=== PATIENT | female | born 1985 ===

== ENCOUNTER 2020-06-13 08:00 | Outpatient (RCR) | payer OTHER, SELFPAY ==
[2020-05-17 12:05] VITALS: BMI 20.7
--- NOTE | 2020-05-17 12:25 | PC.ADMIT ---
Patient is a 35 year old female who was referred to the PHP program by her neurologist d/t anxiety with panic attacks. Pt has a seizure d/o and went to her neurologist to f/u however patient stated her neurologist told her she was not having Seizures she was having panic attacks. 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 Patient is alert and oriented x4. Reports HX of having a brain tumor and surgery for removal at age 8. 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 Stated her mother is home with her during group time and the clinicians can call her mother at [phone] if they witness her having a seizure. If mom not available call [phone]. Patient given education about panic attacks and was able to identify some symptoms that she experiences such as Heart racing, sweating, Trembling, SOB, and tingling sensations. Educated patient on Calm Breathing. Patient gave verbal permission to email her more information on Panic attacks, calm breathing, and her Safety Plan. Patient denied SI. Assessment completed via telephone d/t the pandemic.
--- NOTE | 2020-05-17 16:03 | HO.PS.ADMBH ---
HPI Chief Complaint: depression Sources of Information: patient interviewed and chart reviewed HPI Narrative: 35 yo female, referred by her neurology team reports symptoms of anxiety, panic which she misinterpreted for seizure activity. Reports an increase in depressive and anxious sx due to stress and invalidation in her workplace, stating she has been asked to perform tasks for which she has no training. She left work on medical leave on 05/06/20. 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 This has increased her anxiety along with physical symptoms of headache, body aches, generalized pain and feelings of hopelessness. Pt reports she has had a very positive first day in PHP groups and feels hopeful that symptoms will improve with improved understanding and learning coping skills. Discussion of anxiety, panic and symptoms. [facility] Medical History (Updated 05/21/20 @ 08:59 by Radha Rojo, CECI) Brain tumor Epilepsy Seizures Narrative: Epilepsy diagnosed per pt in 2006. Hx of TBI. s/p brain tumor pt reports some balance issues which are well controlled and some tremor at times PCP appt 05/22/20 when labs are due. 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 She is single, lives with her eleven year old son, her grandmother, and her uncle. Her mother lives in the home, in a downstairs apartment. Substance History: Denies Trauma History: Denies Diagnostics Vital Signs (24Hr): Body Mass Index 20.7 Meds/Allergies Meds Home Medications Medication Instructions Recorded Confirmed Type divalproex [Depakote ER] 250 mg PO DAILY 05/17/20 05/17/20 History divalproex [Depakote ER] 500 mg PO BEDTIME 05/17/20 05/17/20 History Allergies Allergies Allergy/AdvReac Type Severity Reaction Status Date / Time lamotrigine [Lamictal] Allergy Unknown Swelling Verified 05/20/20 14:59 of eyes/lips Mental Status Exam Mental Status Exam Patient Appearance: Appropriate Patient Orientation: Person, Place, Time and Situation Level of Consciousness: Awake, Appropriate and Alert Patient Behavior: Appropriate, Talkative, Cooperative and Anxious Mood Description: Appropriate, Anxious and Apprehensive Affect Description: Appropriate, Anxious and Apprehensive Patient Cognition Impaired: No Ability to Follow Directions: Excellent Speech Pattern: Clear and Appropriate Memory Description: Intact Hallucinations: None Delusions: Not Present Thought Process: Intact and Goal Oriented Thought Content: positive for Intact, positive for Circumstantial and positive for Logical Depressive Symptoms: Increased Anxiety, Muscle Pain, Hopelessness, Unhappiness, Increased Fatigue and Loss of Energy Judgement: Good Assessment & Plan Patient educated on: diagnosis, medication risk/benefits, therapeutic strategies and medical condition Informed Consent: understands and further education needed Reason for continued partial hosp. stay Substantial Risk for: inability to function and rapid decompensation Certification I certify that partial hospital treatment is medically necessary due to the symptoms and problems resulting from the patient's mental illness and the failure to treat the patient at the partial hospital level of care would likely result in the patient requiring inpatient psychiatric care which could not be prevented at a less intensive level of care.
--- NOTE | 2020-05-23 08:16 | PC.NURSE ---
Pt called and I spoke to her. She was out yesterday because she had an MD appt. She shared that she went to this appt and that the MD lost her [facility] paperwork, and no longer takes her insurance. She said she has to leave somewhat early today (12 noon) because she needs to return to this MD with new [facility] paperwork, and needs to change her insurance so that her MD will see her. She said she is getting help with this from her mother and sister. She will do a half day and leave early. She also has a neurology appt at 3 on Wednesday05/27/2020.
--- NOTE | 2020-05-23 16:05 | HO.PHPPROGNO ---
Subjective Subjective Date of Service: 05/23/20 Reason For Visit: depression Interim History: Shaylee reports she believes she is doing good. She reports feeling improved. Finding group helpful. Toay she discussed concerns regarding [place] paperwork which we reviewed. She will email required documents and we will complete them. Discussed medical appointments for next week. She will meet with neurology on Sunday 05/27. She continues to decline psychopharmacology intervention for assistance with symptom management. Medication Compliance: Yes Side effects from medications: No Attending Groups: Yes Review of Systems Psychiatric: Reports no additional psychiatric complaints Mental Status Exam Mental Status Exam Patient Orientation: Person, Place, Time and Situation Level of Consciousness: Awake and Alert Patient Behavior: Appropriate and Anxious Mood Description: Anxious Affect Description: Anxious Patient Cognition Impaired: No Ability to Follow Directions: Excellent Speech Pattern: Clear, Appropriate and Spontaneous Speech Memory Description: Intact Hallucinations: None Delusions: Not Present Thought Process: Intact and Goal Oriented Thought Content: positive for Intact Depressive Symptoms: Increased Anxiety Judgement: Good Diagnostics Vital Signs (24Hr): Body Mass Index 20.7 Assessment & Plan Patient educated on: medication risk/benefits and therapeutic strategies Informed Consent: understands and further education needed Reason for contiued partial hosp. stay Substantial Risk for: inability to function and rapid decompensation Certification I certify that partial hospital treatment is medically necessary due to the symptoms and problems resulting from the patient's mental illness and the failure to treat the patient at the partial hospital level of care would likely result in the patient requiring inpatient psychiatric care which could not be prevented at a less intensive level of care. Greater than 50% of the session was spent on counseling and/or coordination of care Discharge Plan Discharge Attending provider: Angel Proctor Additional Instructions: Continue Depakote 750 mg daily Pt declines psychopharmacology additions at this time for assistance with symptoms. Medications: No Action divalproex [Depakote ER] 250 mg Tablet Extended Release 24 Hr 500 mg PO BEDTIME RF: 0 divalproex [Depakote ER] 250 mg Tablet Extended Release 24 Hr 250 mg PO DAILY RF: 0
--- NOTE | 2020-05-28 09:54 | PC.NURSE ---
At pt's request, I called and referred pt to [facility]. I spoke to Tiara. I requested the [place] location as this is what pt asked for. She took information and said she will call me with an appt for therapist and med provider.
--- NOTE | 2020-05-28 16:18 | P.PNPSP_ITS ---
Subjective Subjective Date of Service: 05/28/20 Reason For Visit: depression Interim History: Shaylee reports an increase in anxiety due to worry about current problems with work related stressors. She had stopped Lorazepam but today reports she met with her neurology team and was told her EEG shows instances of partial seizures, possibly from anxiety. As a result, they have increased Depakote to 500 mg bid and she is using her lorazepam. Discussed antidepressant use to assist as well. She continues to decline. Medication Compliance: Intermittent (states she was not using Lorazepam as directed by her neurology team) Side effects from medications: Yes (sedation from Lorazepam) Attending Groups: Yes Review of Systems Reports seizure-like activity (EEG validated) Psychiatric: Reports anxiety, Reports depression, Reports difficulty concentrating and Reports other (seizure activity) Mental Status Exam Mental Status Exam Patient Orientation: Person, Place, Time and Situation Level of Consciousness: Awake, Appropriate and Alert Patient Behavior: Appropriate and Anxious Mood Description: Appropriate and Anxious Affect Description: Anxious and Apprehensive Patient Cognition Impaired: No Ability to Follow Directions: Excellent Speech Pattern: Clear and Appropriate Memory Description: Intact Hallucinations: None Delusions: Not Present Thought Process: Intact and Distracted (at times-worries) Thought Content: positive for Intact Depressive Symptoms: Increased Anxiety, Feelings of Worthlessness, Unhappiness and Low Self Esteem Judgement: Good Diagnostics Vital Signs (24Hr): Body Mass Index 20.7 Imaging Radiology Impressions: EEG shows seizure activity per pt report-she met with neurology today. Assessment & Plan Patient educated on: medication risk/benefits, therapeutic strategies and medical condition Informed Consent: further education needed Reason for contiued partial hosp. stay Substantial Risk for: inability to function and rapid decompensation Certification I certify that partial hospital treatment is medically necessary due to the symptoms and problems resulting from the patient's mental illness and the failure to treat the patient at the partial hospital level of care would likely result in the patient requiring inpatient psychiatric care which could not be prevented at a less intensive level of care. Greater than 50% of the session was spent on counseling and/or coordination of care Discharge Plan Discharge Attending provider: Angel Proctor Additional Instructions: Pt reports neuro team has increased Depakote to 500 mg bid Pt declines psychopharmacology additions at this time for assistance with s ymptoms. Medications: Discontinued divalproex [Depakote ER] 250 mg Tablet Extended Release 24 Hr 500 mg PO BEDTIME RF: 0 divalproex [Depakote ER] 250 mg Tablet Extended Release 24 Hr 250 mg PO DAILY RF: 0
--- NOTE | 2020-06-03 09:56 | PC.NURSE ---
Pt called out for PHP today. She said she has to take her son to the neurologist today in [place].
--- NOTE | 2020-06-04 08:38 | PC.NURSE ---
I called [facility] to inquire about referral placed for pt. I was told the sanitation supervisor would call be back.
--- NOTE | 2020-06-04 14:16 | PC.NURSE ---
I called [facility], as I have not heard back yet. They gave pt an appt with Gissel Lima, [address] [place] [address] in [place] (phone appt). I called and let pt know about this. I was told that pt will get a med appt after 3 to 6 visits with her therapist. They said there are no acceptations to this wait time for [facility] PHP/IOP clients and I spoke with Eva Blackmon, broadcast field supervisor, about this. Eva said she will call [facility].
--- NOTE | 2020-06-05 13:51 | HO.PHPPROGNO ---
Subjective Subjective Date of Service: 06/05/20 Reason For Visit: depression Interim History: Mother and grandmother answered the telephone for our scheduled appt. Both report worry about pt, she is not doing well. Shaylee concurs. Experiencing an increase of depressive sx, having ?SE from Depakote (an increase of 250 mg daily at her last neurological appt) feeling tired, anergic, dizzy,amotivation, headache. Reports she is able to better tolerate Lorazepam than when initially started. Sleep is off and on. On 06/04 she was awake for the day at 12am. Appetite is very poor, anxiety is high. Discussed postponing a return to work and possibly extending PHP. Pt will talk with her employer and junior technical writer will discuss with the team for input. Continues to decline antidepressant trial at this time. Medication Compliance: Yes Side effects from medications: Yes (as noted) Attending Groups: Yes Review of Systems Constitutional: Reports difficulty sleeping, Reports fatigue, Reports headache(s) (correlates to recent titration of Depakote by 250 mg daily.), Reports malaise and Reports weakness Reports headache(s) (correlates to recent titration of Depakote by 250 mg daily.) Reports headache(s) (correlates to recent titration of Depakote by 250 mg daily.), Reports seizure-like activity (EEG validated) and Reports weakness Psychiatric: Reports abnormal sleep pattern, Reports anxiety, Reports change in appetite, Reports depression and Reports hopelessness Endocrine: Reports fatigue Mental Status Exam Mental Status Exam Patient Orientation: Person, Place, Time and Situation Level of Consciousness: Awake, Appropriate and Alert Patient Behavior: Appropriate Mood Description: Depressed and Flat Affect Description: Flat Patient Cognition Impaired: No Ability to Follow Directions: Excellent Speech Pattern: Clear, Appropriate and Spontaneous Speech Memory Description: Intact Hallucinations: None Delusions: Not Present Thought Process: Intact Thought Content: positive for Intact Depressive Symptoms: Increased Anxiety, Insomnia, Diff. Making Decisions, Difficulty Sleeping, Changes in Appetite, Crying Spells, Loss of Int. in Activity, Hopelessness, Unexplained Headaches, Unhappiness, Increased Fatigue, Loss of Energy and Difficulty Concentrating Judgement: Good Diagnostics Vital Signs (24Hr): Body Mass Index 20.7 Assessment & Plan Patient educated on: diagnosis, medication risk/benefits, therapeutic strategies and medical condition Informed Consent: understands and further education needed Reason for contiued partial hosp. stay Substantial Risk for: inability to function and rapid decompensation Certification I certify that partial hospital treatment is medically necessary due to the symptoms and problems resulting from the patient's mental illness and the failure to treat the patient at the partial hospital level of care would likely result in the patient requiring inpatient psychiatric care which could not be prevented at a less intensive level of care. Greater than 50% of the session was spent on counseling and/or coordination of care Discharge Plan Discharge Attending provider: Angel Proctor Additional Instructions: Pt reports neuro team has increased Depakote to 500 mg bid Pt declines psychopharmacology additions at this time for assistance with symptoms. Appt for an intake for psychotherapy at [facility], Wednesday06/11/2020 at 11am with Gissel Lima, therapist. This is a phone appt, Gissel Lima will call the client. Discussed with pt extending FMLA and PHP. She will discuss with employer. Will get lab work today (CBCD, ChemPanel, Valproate level) to assess reported SE. Medications: Discontinued divalproex [Depakote ER] 250 mg Tablet Extended Release 24 Hr 500 mg PO BEDTIME RF: 0 divalproex [Depakote ER] 250 mg Tablet Extended Release 24 Hr 250 mg PO DAILY RF: 0 No Action Depakote 500 mg 500 mg PO BID RF: 0 Ativan 1 mg 1 mg PO BID RF: 0
--- NOTE | 2020-06-10 14:40 | HO.PS.ADMBH ---
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 She is single, lives with her eleven year old son, her grandmother, and her uncle. Her mother lives in the home, in a downstairs apartment. Trauma History: Denies Diagnostics Vital Signs (24Hr): Body Mass Index 20.7 Meds/Allergies Meds Home Medications Medication Instructions Recorded Confirmed Type Depakote 500 mg PO BID 05/29/20 05/29/20 History Ativan 1 mg PO BID 06/05/20 06/05/20 History Allergies Allergies Allergy/AdvReac Type Severity Reaction Status Date / Time lamotrigine [Lamictal] Allergy Unknown Swelling Verified 05/20/20 14:59 of eyes/lips Assessment & Plan Certification I certify that partial hospital treatment is medically necessary due to the symptoms and problems resulting from the patient's mental illness and the failure to treat the patient at the partial hospital level of care would likely result in the patient requiring inpatient psychiatric care which could not be prevented at a less intensive level of care.
--- NOTE | 2020-06-10 14:41 | HO.PHPPROGNO ---
Subjective Subjective Date of Service: 06/10/20 Reason For Visit: depression Interim History: Shaylee reports today she is feeling anxious, R arm she reports is tingling and hurts, which by history is a precursor to seizure activity. Plans labs today, psychotherapy on 06/11/20. Discussed feeling wierd depersonalized on 06/08-worried she was having aura. Discussed with pt considering an antidepressant in addition to Valproate and Lorazepam Medication Compliance: Yes Side effects from medications: No Attending Groups: Yes Review of Systems Constitutional: Reports fatigue and Reports weakness Reports seizure-like activity (EEG validated) and Reports weakness Psychiatric: Reports anxiety, Reports depression and Reports hopelessness Endocrine: Reports fatigue Mental Status Exam Mental Status Exam Patient Orientation: Person, Place, Time and Situation Level of Consciousness: Awake and Appropriate Patient Behavior: Appropriate and Cooperative Mood Description: Anxious Affect Description: Flat Patient Cognition Impaired: No Ability to Follow Directions: Excellent Speech Pattern: Clear, Appropriate and Spontaneous Speech Memory Description: Intact Hallucinations: None Delusions: Not Present Thought Process: Intact and Distracted (worried, anticipating seizure) Thought Content: positive for Preoccupation (worry about seizure activity) Depressive Symptoms: Increased Anxiety, Hopelessness, Unhappiness, Increased Fatigue and Low Self Esteem Judgement: Good Diagnostics Vital Signs (24Hr): Body Mass Index 20.7 Labs Labs: Plans lab work today Assessment & Plan Patient educated on: diagnosis, medication risk/benefits, therapeutic strategies and medical condition Informed Consent: understands and further education needed Reason for contiued partial hosp. stay Substantial Risk for: inability to function, rapid decompensation and med/psych decompensation Certification I certify that partial hospital treatment is medically necessary due to the symptoms and problems resulting from the patient's mental illness and the failure to treat the patient at the partial hospital level of care would likely result in the patient requiring inpatient psychiatric care which could not be prevented at a less intensive level of care. Greater than 50% of the session was spent on counseling and/or coordination of care Discharge Plan Discharge Attending provider: Angel Proctor Additional Instructions: Pt reports neuro team has increased Depakote to 500 mg bid Pt declines psychopharmacology additions at this time for assistance with symptoms. *Appt for an intake for psychotherapy at [facility], Wednesday06/11/2020 at 11am with Gissel Lima therapist. This is a phone appt, Gissel Lima will call the client. Discussed with pt extending FMLA and PHP. She will discuss with employer. Will get lab work today (CBCD, ChemPanel, Valproate level) to assess reported SE. *Appt for medication management evaluation with Antoine Mims APRN at [facility] on 07/11/2020 at 3:40pm. She has another appt for followup with Antoine Mims APRN ([facility]) on 08/12/2019 at 9:40am. These are tele-health appts, Antoine Mims will call the client and she has 10 minutes to return the call if she misses it. 06/10/20: Pt to consider adding an antidepressant. She has not done lab work yet, but will plan this for later today. Medications: Discontinued divalproex [Depakote ER] 250 mg Tablet Extended Release 24 Hr 500 mg PO BEDTIME RF: 0 divalproex [Depakote ER] 250 mg Tablet Extended Release 24 Hr 250 mg PO DAILY RF: 0 No Action Depakote 500 mg 500 mg PO BID RF: 0 Ativan 1 mg 1 mg PO BID RF: 0
== END 2020-06-13 23:55 | disposition home or self-care (01) ==
LOC: HO.PHPA 08:00
PROVIDERS: Visit Provider Psychiatry & Neurology Psychiatry
DX: F32.9 Major depressive disorder, single episode, unspecified (principal); F41.9 Anxiety disorder, unspecified
CPT/HCPCS: 90792; 90853; 99213; 99214

== ENCOUNTER 2020-06-17 10:24 | Outpatient (REF) | payer OTHER, SELFPAY ==
[2020-06-17 12:14] LABS: Valproate 72.5 mcg/mL (50.0-100.0)
== END 2020-06-17 10:25 | disposition home or self-care (01) ==
LOC: HO.HMGCLDS 10:24
PROVIDERS: PCP Internal Medicine; Visit Provider Psychiatry & Neurology Neurology
DX: G40.909 Epilepsy, unspecified, not intractable, without status epilepticus (principal)
CPT/HCPCS: 80164

== ENCOUNTER 2020-06-21 10:19 | Outpatient (REF) | payer OTHER, SELFPAY ==
[2020-06-21 11:14] LABS: MANUAL DIFF FLAG NO
[2020-06-21 11:24] LABS: Basophils Percent Auto 0.3 % (0-2); Eosinophils Percent Auto 0.5 % (0-4); Hematocrit 38.1 % (37-47); Hemoglobin 12.5 g/dl (12.0-16.0); Imm Gran Abs Auto 0.05 X10*3/uL (0.00-0.03); Imm Gran Pct Auto 0.9 % (0.0-0.4); Lymphocytes Absolute Auto 2.5 X10*3/uL (1.2-4.9); Lymphocytes Percent Auto 42.9 % (20-40); Mean Corpuscular HGB Conc 32.8 g/dl (31.0-35.0); Mean Corpuscular Hemoglobin 31.5 pg (27.0-33.0); Mean Platelet Volume 11.2 fL (9.4-12.3); Monocytes Absolute Auto 0.5 X10*3/uL (0.1-1.2); Monocytes Percent Auto 7.8 % (2-11); Neutrophils Absolute Auto 2.8 X10*3/uL (2.0-8.3); Neutrophils Percent Auto 47.6 % (45-73); Platelet Count 186 X10*3/uL (160-400); Red Blood Count 3.97 X10*6/uL (4.20-5.50); Red Cell Distribution Width 11.8 % (11.0-16.0); White Blood Count 5.9 X10*3/uL (4.8-10.8)
[2020-06-21 12:12] LABS: Anion Gap 13 (12-20); Blood Urea Nitrogen 10 mg/dL (9-16); Calcium 8.8 mg/dL (8.4-10.2); Carbon Dioxide 27 mmol/L (22-29); Chloride 104 mmol/L (96-108); Estimated Glomerular Filt Rate > 60; Glucose Random 80 mg/dL (60-115); Potassium 4.6 mmol/l (3.3-5.1); Sodium 139 mmol/L (135-145)
[2020-06-21 12:16] LABS: Vitamin B12 742 pg/mL (200-900)
[2020-06-21 12:34] LABS: Ferritin 52 ng/mL (10-122); TSH reflex Free T4 2.57 mIU/mL (0.32-4.0)
[2020-06-24 19:09] LABS: LDL Cholesterol Direct 140 mg/dL (<100)
[2020-06-26 16:22] LABS: Vitamin D 25-OH, D2 <4 ng/mL; Vitamin D 25-OH, D3 33 ng/mL; Vitamin D 25-OH, Total 33 ng/mL (30-100)
== END 2020-06-21 10:20 | disposition home or self-care (01) ==
LOC: HO.HMGCLDS 10:19
PROVIDERS: PCP Internal Medicine; Visit Provider Internal Medicine
DX: G40.909 Epilepsy, unspecified, not intractable, without status epilepticus (principal); R42 Dizziness and giddiness; R53.83 Other fatigue; R68.89 Other general symptoms and signs
CPT/HCPCS: 36415; 80048; 82306; 82607; 82728; 83721; 84443; 85025

== ENCOUNTER 2020-11-27 09:28 | Outpatient (REF) | payer OTHER, SELFPAY ==
[2020-11-27 11:26] LABS: MANUAL DIFF FLAG NO
[2020-11-27 11:30] LABS: Basophils Percent Auto 0.6 % (0-2); Eosinophils Absolute Auto 0.1 X10*3/uL (0.0-0.4); Hematocrit 38.1 % (37-47); Hemoglobin 12.5 g/dl (12.0-16.0); Imm Gran Abs Auto 0.05 X10*3/uL (0.00-0.03); Imm Gran Pct Auto 0.7 % (0.0-0.4); Lymphocytes Absolute Auto 2.6 X10*3/uL (1.2-4.9); Lymphocytes Percent Auto 36.7 % (20-40); Mean Corpuscular HGB Conc 32.8 g/dl (31.0-35.0); Mean Corpuscular Hemoglobin 31.4 pg (27.0-33.0); Mean Corpuscular Volume 95.7 fL (80-98); Mean Platelet Volume 11.6 fL (9.4-12.3); Monocytes Absolute Auto 0.7 X10*3/uL (0.1-1.2); Monocytes Percent Auto 9.5 % (2-11); Neutrophils Absolute Auto 3.6 X10*3/uL (2.0-8.3); Neutrophils Percent Auto 51.5 % (45-73); Platelet Count 202 X10*3/uL (160-400); Red Blood Count 3.98 X10*6/uL (4.20-5.50); Red Cell Distribution Width 12.1 % (11.0-16.0)
[2020-11-27 12:30] LABS: Alanine Aminotransferase 12 U/L (0-31); Albumin Level 4.1 g/dL (3.5-5.0); Alkaline Phosphatase 47 U/L (39-117); Anion Gap 14 (12-20); Aspartate Amino Transferase 17 U/L (5-31); Bilirubin Total 0.8 mg/dL (0.0-1.0); Blood Urea Nitrogen 8 mg/dL (9-16); Carbon Dioxide 24 mmol/L (22-29); Chloride 104 mmol/L (96-108); Estimated Glomerular Filt Rate > 60; Glucose Random 68 mg/dL (60-115); Potassium 4.3 mmol/L (3.3-5.1); Sodium 138 mmol/L (135-145)
== END 2020-11-27 09:29 | disposition home or self-care (01) ==
LOC: HO.HMGCLDS 09:28
PROVIDERS: PCP Internal Medicine; Visit Provider Internal Medicine
DX: L29.9 Pruritus, unspecified (principal); R21 Rash and other nonspecific skin eruption; T78.40XA Allergy, unspecified, initial encounter
CPT/HCPCS: 36415; 80053; 85025

== ENCOUNTER 2021-10-13 08:46 | Outpatient (REF) | payer OTHER, SELFPAY ==
[2021-10-13 10:07] LABS: Alanine Aminotransferase 9 U/L (0-31); Alkaline Phosphatase 34 U/L (39-117); Aspartate Amino Transferase 13 U/L (5-31); Bilirubin Direct 0.2 mg/dL (0.0-0.5); Bilirubin Total 0.6 mg/dL (0.0-1.0); Total Protein 6.8 g/dL (6.5-8.0)
[2021-10-13 11:11] LABS: Valproate 68.8 mcg/mL (50.0-100.0)
== END 2021-10-13 08:47 | disposition home or self-care (01) ==
LOC: HO.LAB 08:46
PROVIDERS: PCP Internal Medicine; Visit Provider Psychiatry & Neurology Neurology
DX: G43.909 Migraine, unspecified, not intractable, without status migrainosus (principal); Z79.899 Other long term (current) drug therapy
CPT/HCPCS: 36415; 80076; 80164

== ENCOUNTER 2021-10-15 12:38 | Outpatient (REF) | payer OTHER, SELFPAY ==
[2021-10-15 13:49] LABS: MANUAL DIFF FLAG NO
[2021-10-15 13:59] LABS: Basophils Absolute Auto 0.1 X10*3/uL (0.0-0.2); Basophils Percent Auto 0.6 % (0-2); Eosinophils Absolute Auto 0.1 X10*3/uL (0.0-0.4); Eosinophils Percent Auto 0.8 % (0-4); Hematocrit 38.4 % (37.0-47.0); Hemoglobin 12.1 g/dl (12.0-16.0); Imm Gran Abs Auto 0.04 X10*3/uL (0.00-0.03); Imm Gran Pct Auto 0.5 % (0.0-0.4); Lymphocytes Absolute Auto 2.9 X10*3/uL (1.2-4.9); Lymphocytes Percent Auto 34.8 % (20-40); Mean Corpuscular HGB Conc 31.5 g/dl (31.0-35.0); Mean Platelet Volume 11.9 fL (9.4-12.3); Monocytes Absolute Auto 0.6 X10*3/uL (0.1-1.2); Monocytes Percent Auto 6.9 % (2-11); Neutrophils Absolute Auto 4.8 x10*3/uL (2.0-8.3); Neutrophils Percent Auto 56.4 % (45-73); Platelet Count 182 X10*3/uL (160-400); Red Blood Count 4.04 X10*6/uL (4.20-5.50); Red Cell Distribution Width 12.2 % (11.0-16.0); White Blood Count 8.4 X10*3/uL (4.8-10.8)
[2021-10-15 14:07] LABS: Estimated Average Glucose 88 mg/dL; Hemoglobin A1c % 4.7 %
[2021-10-15 14:09] LABS: Alanine Aminotransferase 7 U/L (0-31); Albumin Level 4.1 g/dL (3.5-5.0); Alkaline Phosphatase 36 U/L (39-117); Anion Gap 12 (12-20); Aspartate Amino Transferase 12 U/L (5-31); Bilirubin Total 0.4 mg/dL (0.0-1.0); Blood Urea Nitrogen 9 mg/dL (9-16); Calcium 9.8 mg/dL (8.4-10.2); Carbon Dioxide 27 mmol/L (22-29); Chloride 106 mmol/L (96-108); Estimated Glomerular Filt Rate > 60; Glucose Random 88 mg/dL (60-115); Potassium 4.6 mmol/L (3.3-5.1); Sodium 140 mmol/L (135-145); Total Protein 7.1 g/dL (6.5-8.0)
[2021-10-15 14:31] LABS: TSH reflex Free T4 3.33 uIU/mL (0.32-4.0)
[2021-10-15 14:53] LABS: Vitamin B12 721 pg/mL (200-900)
[2021-10-20 16:26] LABS: Vitamin D 25-OH, D2 <4 ng/mL; Vitamin D 25-OH, D3 29 ng/mL; Vitamin D 25-OH, Total 29 ng/mL (30-100)
== END 2021-10-15 12:39 | disposition home or self-care (01) ==
LOC: HO.HMGCLDS 12:38
PROVIDERS: Visit Provider Internal Medicine
DX: F41.1 Generalized anxiety disorder (principal); G47.10 Hypersomnia, unspecified; R10.9 Unspecified abdominal pain; R53.83 Other fatigue; R63.4 Abnormal weight loss
CPT/HCPCS: 36415; 80053; 82306; 82607; 83036; 84443; 85025

== ENCOUNTER 2023-08-20 14:54 | Outpatient (AMB) | payer OTHER, SELFPAY ==
--- NOTE | 2023-08-20 15:03 | A.OFFPC_ITS ---
Vital Signs 08/20/23 15:07 Height 5 ft 3 in Weight 102 lb BMI 18.1 BP 110/72 Blood Pressure Location Rt brachial Position Sitting Pulse 71 Pulse Source Pulse Oximeter Pulse Oximetry (%) 97 Oxygen Delivery Method Room Air Intake Visit Reasons: Annual PE Allergies escitalopram [From Lexapro] Allergy (Severe, Verified 08/20/23 15:04) Hallucinations lamotrigine [Lamictal] Allergy (Unknown, Verified 08/20/23 15:04) Swelling of eyes/lips Medication List - Last Reconciled 08/20/23 by Valorie Leon MD divalproex (Depakote) 250 mg PO BID Tobacco use date assessed: 08/20/23 HPI Annual PE HPI Details Physical exam appointment Patient is a 38-year-old female with a history of epilepsy, anxiety, panic attack Due for Pap smear, OBGYN referral placed patient requested [facility] Also complaining of blurring of vision and would like to see an eye doctor Lab order placed to be done fasting Patient need paperwork filled for housing which I did She continued to have panic attacks in spite of taking Lexapro through neurology I have sent lorazepam 0.5 mg tablet patient may take that 1 as needed patient is aware it is a controlled medication at will need visit for refill Patient was notified This medication is Habit forming and may cause Psychological dependence, It can cause drowsiness, dizziness, cognitive impairment , slowing of reflexes along with some other side effect . Vitamin-D supplement sent [facility] Medical History Anxiety, generalized Epilepsy Brain tumor Seizures Surgical History History of section [place] teeth extracted Brain tumor Family History Father Diabetes mellitus Mother Medical history non-contributory Sister Asthma Sister No problems noted. Son No problems noted. Social History Household Members: Family and Children Household Members Other:: Pt lives with 11 yo son, grandmother, and uncle. Mother lives downstairs Housing: House Alcohol intake: never Patient Tobacco Use Status: Never used Tobacco e-Cigarette/Vaping Use: Never Used service: No Current occupational status: unemployed Cognitive needs: No Hearing needs: No Vision needs: No Questionnaire PHQ-9 Over the last 2 weeks, how often have you been bothered by any of the following problems? 1. Little interest or pleasure in doing things: several days 2. Feeling down, depressed, or hopeless: not at all 3. Trouble falling or staying asleep, or sleeping too much: nearly every day 4. Feeling tired or having little energy: several days 5. Poor appetite or overeating: several days 6. Feeling bad about yourself - or that you are a failure or have let yourself or your family down: not at all 7. Trouble concentrating on things, such as reading the newspaper or watching television: not at all 8. Moving or speaking so slowly that other people could have noticed. Or the opposite - being so fidgety or restless that you have been moving around a lot more than usual: nearly every day 9. Thoughts that you would be better off or of hurting yourself in some way: not at all Total score: 9 Depression Screening Interpretation: Positive Depression Screening Follow-up: Existing condition and In treatment Depression Screening Done: Yes 20967 - PHQ-9 Billing: Yes Source: Developed by Drs. Rubens Jhaveri, Liane Shannon, Estrada Macias and colleagues, with an educational anjel from [employer]. Thrive Questionnaire Date Thrive assessed: 08/20/23 I am a: Patient What is your living situation today?: I have a steady place to live Within the past 12 months, did the food you bought not last and you didn't have the money to get more?: Never true Within the past 12 months, did you worry whether your food would run out before you got money to buy more?: Never true Do you have trouble paying for medicines?: No Do you have trouble getting transportation to medical appointments?: No Do you have trouble paying your heating and electricity bill?: No Do you have trouble taking care of your child, family member or friend?: No Do you have trouble with day-to-day activities such as bathing, preparing meals, shopping, managing finances, etc.?: No Are you currently unemployed and looking for a job?: No Are you interested in more education?: No Please select the resources that you would like help with: None YOSHI-7 AMB Questionnaire YOSHI-7 Date YOSHI - 7 assessed: 08/20/23 Feeling nervous, anxious, or on edge: 0 = Not at all Not being able to stop or control worryin = Not at all Worrying too much about different things: 0 = Not at all Trouble relaxin = Not at all Being so restless that it is hard to sit still: 0 = Not at all Becoming easily annoyed or irritable: 0 = Not at all Feeling afraid as if something awful might happen: 0 = Not at all Total YOSHI-7 score (0-4 normal; 5-9 mild; 10-14 moderate; 15-21 severe): 0 Source: Developed by Drs. Rubens Jhaveri, Liane Shannon, Estrada Macias and colleagues, with an educational anjel from [employer]. YOSHI-7 Assessment Billing YOSHI-7 Assessment Tool: YOSHI-7 Assessment 84266 Review of Systems Const Denies chills, Denies fever(s) and Denies headache(s) ENT Denies headache(s), Denies nasal discharge, Denies nasal obstruction, Denies odynophagia and Denies sinus pain Card Denies chest pain at rest and Denies chest pain with activity Resp Denies cough and Denies hemoptysis GI Denies diarrhea, Denies odynophagia, Denies vomiting and Denies hematemesis Reports as per HPI Musc Denies abnormal gait Skin/Breast Reports as per HPI Neuro Denies Neuro-related abnormal movements, Denies Abnormal speech present, Denies abnormal gait, Denies headache(s) and Denies Sensory deficit (Neuro) Psych Denies mood swings and Denies paranoia Endo Reports as per HPI Aramis/Lymph Reports as per HPI Aller/Immun Reports as per HPI Physical exam (Primary Care) Vital Signs: Last Vital Signs Pulse 71 08/20/23 15:07 BP 110/72 08/20/23 15:07 Pulse Ox 97 08/20/23 15:07 Oxygen Delivery Method Room Air 08/20/23 15:07 BMI result Body Mass Index 18.1 Tobacco/Smoking Status: Tobacco use Status Tobacco use date assessed 08/20/23 08/20/23 15:07 Patient Tobacco Use Status Never used Tobacco 08/20/23 15:07 e-Cigarette/Vaping Use Never Used 08/20/23 15:07 PHQ-9: PHQ-9 Score PHQ-9: Total score 9 08/20/23 15:49 Depression Screening Interpretation: Positive Depression Screening Follow-up: Existing condition and In treatment Thrive Assessment: Date of Thrive Assessment Date Thrive assessed 08/20/23 08/20/23 15:49 Const General: cooperative, comfortable and no acute distress Orientation/consciousness: patient oriented x3 HENMT Head: Yes normocephalic and Yes atraumatic Eyes General: appearance normal, both eyes and all related structures Pupils: Equal, round and reactive pupils present EOM: EOMs intact bilaterally Neck Neck: Yes supple and No lymphadenopathy Thyroid: Thyroid normal Lymphatic: no lymphadenopathy noted Resp Effort & Inspection: normal respiratory effort and able to speak in complete sentences Auscultation: clear to auscultation bilaterally Cardio Heart sounds: S1 normal heart sound present and S2 normal heart sound present GI Palpation (GI): Soft to palpation and nontender Auscultation: normal bowel sounds General: Yes no CVA tenderness Back/Spine/Pelvis Back: no CVA tenderness Skin General skin exam: elasticity normal and turgor normal Neuro General: patient oriented x3 and gait normal Cranial nerves: Yes Equal, round and reactive pupils present Speech: No Abnormal speech present Sensory Exam: No Sensory deficit (Neuro) Extrem General: Yes normal exam except as noted and No edema Assessment and Plan Assessment & Plan (1) Encounter for general adult medical examination with abnormal findings: Code(s): Z00.01 - Encounter for general adult medical examination with abnormal findings (2) Seizure disorder: Code(s): G40.909 - Epilepsy, unspecified, not intractable, without status epilepticus (3) Major depression, recurrent: Code(s): F33.9 - Major depressive disorder, recurrent, unspecified Qualifiers: Active/Remission status: in partial remission Qualified Code(s): F33.41 - Major depressive disorder, recurrent, in partial remission (4) Blurring of vision: Code(s): H53.8 - Other visual disturbances (5) Panic disorder [episodic paroxysmal anxiety]: Code(s): F41.0 - Panic disorder [episodic paroxysmal anxiety] (6) Vitamin D deficiency: Code(s): E55.9 - Vitamin D deficiency, unspecified Plan Physical exam appointment Patient is a 38-year-old female with a history of epilepsy, anxiety, panic attack Due for Pap smear, OBGYN referral placed patient requested [facility] Also complaining of blurring of vision and would like to see an eye doctor Lab order placed to be done fasting Patient need paperwork filled for housing which I did She continued to have panic attacks in spite of taking Lexapro through neurology I have sent lorazepam 0.5 mg tablet patient may take that 1 as needed patient is aware it is a controlled medication at will need visit for refill Patient was notified This medication is Habit forming and may cause Psychological dependence, It can cause drowsiness, dizziness, cognitive impairment , slowing of reflexes along with some other side effect . Vitamin-D supplement sent Orders: Orders Complete Blood Count Auto Diff Today F33.9 - Major depressive disorder, recurrent, unspecified, G40.909 - Epilepsy, unspecified, not intractable, witho ut status epilepticus, Z00.01 - Encounter for general adult medical examination with abnormal findings Comprehensive [place]. Panel Fast Today F33.9 - Major depressive disorder, recurrent, unspecified, G40.909 - Epilepsy, unspecified, not intractable, without status epilepticus, Z00.01 - Encounter for general adult medical examination with abnormal findings Lipid Panel Today F33.9 - Major depressive disorder, recurrent, unspecified, G40.909 - Epilepsy, unspecified, not intractable, without status epilepticus, Z00.01 - Encounter for general adult medical examination with abnormal findings TSH reflex Free T4 Today F33.9 - Major depressive disorder, recurrent, unspecified, G40.909 - Epilepsy, unspecified, not intractable, without status epilepticus, Z00.01 - Encounter for general adult medical examination with abnormal findings Referrals [facility] Referral Z01.419 - Encounter for gynecological examination (general) (routine) without abnormal findings Ophthalmology Referral H53.8 - Other visual disturbances Medications: New cholecalciferol (vitamin D3) 25 mcg PO DAILY 90 caps 1RF 90 days lorazepam 0.5 mg PO DAILY PRN 30 tabs 0RF anxiety escitalopram oxalate (Lexapro) 10 mg PO DAILY Coding Level of Care Code Est Pt Prev Care 18-39y(82648) Diagnoses Encounter for general adult medical examination with abnormal findings Z00.01 Seizure disorder G40.909 Recurrent major depressive disorder, in partial remission F33.41 Active/Remission status: in partial remission Blurring of vision H53.8 Panic disorder [episodic paroxysmal anxiety] F41.0 Vitamin D deficiency E55.9 Additional Codes YOSHI-7 Assessment Billing - YOSHI-7 Assessment Tool: YOSHI-7 Assessment 95261 ([id number])
[2023-08-20 15:07] VITALS: BP 110/72; PULSE 71; O2SAT 97; BMI 18.1
== END 2023-08-20 16:00 | disposition home or self-care (01) ==
PROVIDERS: PCP Internal Medicine; Visit Provider Internal Medicine
DX: Z00.00 Encounter for general adult medical examination without abnormal findings (principal); G40.909 Epilepsy, unspecified, not intractable, without status epilepticus; F33.41 Major depressive disorder, recurrent, in partial remission; H53.8 Other visual disturbances; F41.0 Panic disorder [episodic paroxysmal anxiety]; E55.9 Vitamin D deficiency, unspecified
CPT/HCPCS: 96127; 99395

== ENCOUNTER 2023-08-21 09:23 | Outpatient (REF) | payer OTHER, SELFPAY ==
[2023-08-21 11:13] LABS: Basophils Absolute Auto 0.1 X10*3/uL (0.0-0.2); Basophils Percent Auto 0.9 % (0-2); Eosinophils Absolute Auto 0.1 X10*3/uL (0.0-0.4); Eosinophils Percent Auto 1.4 % (0-4); Hematocrit 37.8 % (37.0-47.0); Hemoglobin 12.2 g/dl (12.0-16.0); Imm Gran Abs Auto 0.03 X10*3/uL (0.00-0.03); Imm Gran Pct Auto 0.5 % (0.0-0.4); Lymphocytes Absolute Auto 2.4 X10*3/uL (1.2-4.9); Lymphocytes Percent Auto 43.3 % (20-40); MANUAL DIFF FLAG NO; Mean Corpuscular HGB Conc 32.3 g/dl (31.0-35.0); Mean Corpuscular Hemoglobin 31.1 pg (27.0-33.0); Mean Corpuscular Volume 96.4 fL (80.0-98.0); Mean Platelet Volume 11.5 fL (9.4-12.3); Monocytes Absolute Auto 0.5 X10*3/uL (0.1-1.2); Monocytes Percent Auto 8.6 % (2-11); Neutrophils Absolute Auto 2.5 x10*3/uL (2.0-8.3); Neutrophils Percent Auto 45.3 % (45-73); Platelet Count 190 X10*3/uL (160-400); Red Blood Count 3.92 X10*6/uL (4.20-5.50); Red Cell Distribution Width 11.9 % (11.0-16.0); White Blood Count 5.6 X10*3/uL (4.8-10.8)
[2023-08-21 11:37] LABS: Alanine Aminotransferase 11 U/L (0-31); Albumin Level 4.1 g/dL (3.5-5.0); Alkaline Phosphatase 52 U/L (39-117); Anion Gap 12 (12-20); Aspartate Amino Transferase 14 U/L (5-31); Bilirubin Total 0.6 mg/dL (0.0-1.0); Blood Urea Nitrogen 9 mg/dL (9-16); Calcium 9.2 mg/dL (8.4-10.2); Carbon Dioxide 25 mmol/L (22-29); Chloride 106 mmol/L (96-108); Cholesterol 182 mg/dL (<200); Estimated Glomerular Filt Rate > 60; Glucose Fasting 84 mg/dL (60-99); HDL Cholesterol 46 mg/dL (>40); LDL Cholesterol Calculated 124 mg/dL (<100); Potassium 4.1 mmol/L (3.3-5.1); Sodium 139 mmol/L (135-145); Total Protein 7.2 g/dL (6.5-8.0); Triglycerides 64 mg/dL (<150)
[2023-08-21 11:46] LABS: TSH reflex Free T4 2.61 uIU/mL (0.32-4.0)
== END 2023-08-21 09:24 | disposition home or self-care (01) ==
LOC: HO.HMGCLDS 09:23
PROVIDERS: PCP Internal Medicine; Visit Provider Internal Medicine
DX: Z00.01 Encounter for general adult medical examination with abnormal findings (principal); G40.909 Epilepsy, unspecified, not intractable, without status epilepticus; F33.9 Major depressive disorder, recurrent, unspecified
CPT/HCPCS: 36415; 80053; 80061; 84443; 85025

== ENCOUNTER 2023-10-27 14:47 | Outpatient (AMB) | payer OTHER, SELFPAY ==
[2023-10-27 14:53] VITALS: BP 104/70; PULSE 84; O2SAT 98; BMI 18.1
--- NOTE | 2023-10-27 14:53 | A.OFFPC_ITS ---
Vital Signs 10/27/23 14:53 Height 5 ft 3 in Weight 102 lb 2 oz BMI 18.1 BP 104/70 Blood Pressure Location Rt brachial Position Sitting Pulse 84 Pulse Source Pulse Oximeter Pulse Oximetry (%) 98 Oxygen Delivery Method Room Air Intake Visit Reasons: section 8 paperwork Allergies escitalopram [From Lexapro] Allergy (Severe, Verified 10/27/23 14:55) Hallucinations lamotrigine [Lamictal] Allergy (Unknown, Verified 10/27/23 14:55) Swelling of eyes/lips Medication List - Last Reconciled 10/27/23 by Valorie Leon MD cholecalciferol (vitamin D3) 25 mcg PO DAILY 90 days divalproex (Depakote) 250 mg PO BID escitalopram oxalate (Lexapro) 10 mg PO DAILY lorazepam 0.5 mg PO DAILY PRN Tobacco use date assessed: 10/27/23 Dental Screening Dental Screen Date: 10/27/23 Did you have a dental visit in the last 12 months?: Yes Did you have a dental problem in the last 6 months where you did not have access to dental care?: No Was dental information given to patient?: Patient has dentist HPI section 8 paperwork HPI Details Patient is a 38-year-old female with a history of epilepsy, anxiety, panic attack Patient has been living with who is taking care patient's as well Recently the apartment building bound out and they do not allow family member to leave in the same apartment Patient need paperwork filled so they can allow Shaylee to continue renting a room in her mother's apartment. Paperwork was spell at her last visit but housing authority needs more information. Paperwork filled again She has her regular follow-up next month for medication refill [facility] Medical History Anxiety, generalized Epilepsy Brain tumor Seizures Surgical History History of section [place] teeth extracted Brain tumor Family History Father Diabetes mellitus Mother Medical history non-contributory Sister Asthma Sister No problems noted. Son No problems noted. Social History Household Members: Family and Children Household Members Other:: Pt lives with 11 yo son, grandmother, and uncle. Mother lives downstairs Housing: House Alcohol intake: never Patient Tobacco Use Status: Never used Tobacco e-Cigarette/Vaping Use: Never Used service: No Current occupational status: unemployed Cognitive needs: No Hearing needs: No Vision needs: No Questionnaire Thrive Questionnaire Date Thrive assessed: 08/20/23 AUDIT C Alcohol Use Questionnaire (AUDIT-C) 1. How often do you have a drink containing alcohol?: Never 3. How often do you have six or more drinks on one occasion?: Never Total Score: 0 Score Reviewed/Action Taken: Yes YOSHI-7 AMB Questionnaire YOSHI-7 Date YOSHI - 7 assessed: 08/20/23 Source: Developed by Drs. Rubens Jhaveri, Liane Shannon, Estrada Macias and colleagues, with an educational anjel from [employer]. Review of Systems Const Denies chills and Denies fever(s) ENT Denies epistaxis and Denies nasal discharge Card Denies chest pain Resp Denies chest congestion, Denies cough and Denies hemoptysis GI Denies diarrhea and Denies nausea Skin/Breast Denies rash Neuro Reports no additional complaints Psych Reports no additional complaints Endo Reports no additional complaints Physical exam (Primary Care) Vital Signs: Last Vital Signs Pulse 84 10/27/23 14:53 BP 104/70 10/27/23 14:53 Pulse Ox 98 10/27/23 14:53 Oxygen Delivery Method Room Air 10/27/23 14:53 BMI result Body Mass Index 18.1 Tobacco/Smoking Status: Tobacco use Status Tobacco use date assessed 10/27/23 10/27/23 14:56 Patient Tobacco Use Status Never used Tobacco 10/27/23 14:56 e-Cigarette/Vaping Use Never Used 10/27/23 14:56 Thrive Assessment: Date of Thrive Assessment Date Thrive assessed 08/20/23 10/27/23 14:56 Const General: cooperative, comfortable and no acute distress Orientation/consciousness: patient oriented x3 HENMT Head: Yes normocephalic Eyes General: appearance normal, both eyes and all related structures Neck Neck: Yes supple Resp Effort & Inspection: normal respiratory effort, no cough and no stridor Cardio Rhythm: regular rhythm Heart sounds: S1 normal heart sound present and S2 normal heart sound present Skin General skin exam: turgor normal Neuro General: patient oriented x3, tone normal and moves all extremities Extrem Right lower extremity: no edema Left lower extremity: no edema Assessment and Plan Assessment & Plan (1) Seizure disorder: Code(s): G40.909 - Epilepsy, unspecified, not intractable, without status epilepticus (2) Major depression, recurrent: Code(s): F33.9 - Major depressive disorder, recurrent, unspecified Qualifiers: Active/Remission status: in partial remission Qualified Code(s): F33.41 - Major depressive disorder, recurrent, in partial remission (3) Panic disorder [episodic paroxysmal anxiety]: Code(s): F41.0 - Panic disorder [episodic paroxysmal anxiety] Plan Patient is a 38-year-old female with a history of epilepsy, anxiety, panic attack Patient has been living with who is taking care patient's as well Recently the apartment building bound out and they do not allow family member to leave in the same apartment Patient need paperwork filled so they can allow Shaylee to continue renting a room in her mother's apartment. Paperwork was spell at her last visit but housing authority needs more information. Paperwork filled again She has her regular follow-up next month for medication refill Coding Level of Care Code Est Pt Level 3 (98107) Diagnoses Seizure disorder G40.909 Recurrent major depressive disorder, in partial remission F33.41 Active/Remission status: in partial remission Panic disorder [episodic paroxysmal anxiety] F41.0
== END 2023-10-27 15:53 | disposition home or self-care (01) ==
PROVIDERS: PCP Internal Medicine; Visit Provider Internal Medicine
DX: G40.909 Epilepsy, unspecified, not intractable, without status epilepticus (principal); F33.41 Major depressive disorder, recurrent, in partial remission; F41.0 Panic disorder [episodic paroxysmal anxiety]
CPT/HCPCS: 99213

== ENCOUNTER 2024-05-26 08:58 | Outpatient (AMB) | payer OTHER, SELFPAY ==
[2024-05-26 09:04] VITALS: BP 104/68; PULSE 54; O2SAT 98; BMI 17.9
--- NOTE | 2024-05-26 09:04 | MHC.PC.OV ---
Vital Signs 05/26/24 09:04 Height 5 ft 3 in Weight 101 lb 2 oz BMI 17.9 BP 104/68 Blood Pressure Location Rt brachial Position Sitting Pulse 54 Pulse Source Pulse Oximeter Pulse Oximetry (%) 98 Oxygen Delivery Method Room Air Intake Visit Reasons: Body itchy, rash Allergies escitalopram [From Lexapro] Allergy (Severe, Verified 05/26/24 09:08) Hallucinations lamotrigine [Lamictal] Allergy (Unknown, Verified 05/26/24 09:08) Swelling of eyes/lips Medication List - Last Reconciled 05/26/24 by Valorie Leon MD cholecalciferol (vitamin D3) 25 mcg PO DAILY 90 days divalproex (Depakote) 250 mg PO BID escitalopram oxalate (Lexapro) 10 mg PO DAILY lorazepam 0.5 mg PO DAILY PRN Tobacco use date assessed: 05/26/24 Dental Screening Dental Screen Date: 05/26/24 Did you have a dental visit in the last 12 months?: Yes Did you have a dental problem in the last 6 months where you did not have access to dental care?: No Was dental information given to patient?: Patient has dentist HPI Body itchy, rash HPI Details Chief complaint rash for the past 1 week Took tcju-nyd-pyyfdkc vaginal cream 1 week ago Then started having itching Recently was started on metronidazole vaginal cream by [facility] Have rash behind left ear as well as right ear But feeling pruritic all over body Review system is negative for fever chills nausea vomiting abdominal pain or any joint swellings Patient would like to have labs done, last set of lab was in August Order placed Hydroxyzine 25 mg sent to be taken at night Follow-up next week [facility] Medical History Anxiety, generalized Epilepsy Brain tumor Seizures Surgical History History of section [place] teeth extracted Brain tumor Family History Father Diabetes mellitus Mother Medical history non-contributory Sister Asthma Sister No problems noted. Son No problems noted. Social History Household Members: Family and Children Household Members Other:: Pt lives with 11 yo son, grandmother, and uncle. Mother lives downstairs Housing: House Alcohol intake: never Patient Tobacco Use Status: Never used Tobacco e-Cigarette/Vaping Use: Never Used service: No Current occupational status: unemployed Cognitive needs: No Hearing needs: No Vision needs: No Questionnaire PHQ-9 Over the last 2 weeks, how often have you been bothered by any of the following problems? 1. Little interest or pleasure in doing things: not at all 2. Feeling down, depressed, or hopeless: not at all 3. Trouble falling or staying asleep, or sleeping too much: not at all 4. Feeling tired or having little energy: not at all 5. Poor appetite or overeating: not at all 6. Feeling bad about yourself - or that you are a failure or have let yourself or your family down: not at all 7. Trouble concentrating on things, such as reading the newspaper or watching television: not at all 8. Moving or speaking so slowly that other people could have noticed. Or the opposite - being so fidgety or restless that you have been moving around a lot more than usual: not at all 9. Thoughts that you would be better off or of hurting yourself in some way: not at all Total score: 0 Depression Screening Interpretation: Negative Depression Screening Done: Yes [id number] - PHQ-9 Billing: Yes Source: Developed by Drs. Rubens Jhaveri, Liane Shannon, Estrada Macias and colleagues, with an educational anjel from [employer]. Thrive Questionnaire Date Thrive assessed: 05/26/24 I am a: Patient What is your living situation today?: I have a steady place to live Within the past 12 months, did the food you bought not last and you didn't have the money to get more?: Never true Within the past 12 months, did you worry whether your food would run out before you got money to buy more?: Never true Do you have trouble paying for medicines?: No Do you have trouble getting transportation to medical appointments?: No Do you have trouble paying your heating and electricity bill?: No Do you have trouble taking care of your child, family member or friend?: No Do you have trouble with day-to-day activities such as bathing, preparing meals, shopping, managing finances, etc.?: No Are you currently unemployed and looking for a job?: No Are you interested in more education?: Yes Currently or been in a relationship where the following occur: No concerns reported THRIVE Score: 0 AUDIT C Alcohol Use Questionnaire (AUDIT-C) 1. How often do you have a drink containing alcohol?: Never 3. How often do you have six or more drinks on one occasion?: Never Total Score: 0 Score Reviewed/Action Taken: Yes YOSHI-7 AMB Questionnaire YOSHI-7 Date YOSHI - 7 assessed: 08/20/23 Source: Developed by Drs. Rubens Jhaveri, Liane Shannon, Estrada Macias and colleagues, with an educational anjel from [employer]. Review of Systems Const Denies chills and Denies fever(s) ENT Denies epistaxis and Denies nasal discharge Card Denies chest pain Resp Denies chest congestion, Denies cough and Denies hemoptysis GI Denies diarrhea and Denies nausea Neuro Reports no additional complaints Psych Reports no additional complaints Endo Reports no additional complaints Physical exam (Primary Care) Vital Signs: Last Vital Signs Pulse 54 05/26/24 09:04 BP 104/68 05/26/24 09:04 Pulse Ox 98 05/26/24 09:04 Oxygen Delivery Method Room Air 05/26/24 09:04 BMI result Body Mass Index 17.9 Tobacco/Smoking Status: Tobacco use Status Tobacco use date assessed 05/26/24 05/26/24 09:08 Patient Tobacco Use Status Never used Tobacco 05/26/24 09:08 e-Cigarette/Vaping Use Never Used 05/26/24 09:08 PHQ-9: PHQ-9 Score PHQ-9: Total score 0 05/26/24 09:20 Depression Screening Interpretation: Negative Thrive Assessment: Date of Thrive Assessment Date Thrive assessed 05/26/24 05/26/24 09:08 Currently or been in a relationship where the following occur: No concerns reported Const General: cooperative, comfortable and no acute distress Orientation/consciousness: patient oriented x3 HENMT Head: Yes normocephalic Eyes General: appearance normal, both eyes and all related structures Neck Neck: Yes supple Resp Effort & Inspection: normal respiratory effort, no cough and no stridor Cardio Rhythm: regular rhythm Heart sounds: S1 normal heart sound present and S2 normal heart sound present Skin Other: Maculopapular rash below ears left more than right General skin exam: turgor normal Neuro General: patient oriented x3, tone normal and moves all extremities Extrem Right lower extremity: no edema Left lower extremity: no edema Coding Level of Care Code Est Pt Level 3 (38703) Diagnoses Pruritic dermatitis L30.8 Assessment & Plan Assessment & Plan (1) Pruritic dermatitis: Code(s): L30.8 - Other specified dermatitis Category: Medical Plan Chief complaint rash for the past 1 week Took jqgx-gou-syxqevt vaginal cream 1 week ago Then started having itching Recently was started on metronidazole vaginal cream by [facility] Have rash behind left ear as well as right ear But feeling pruritic all over body Review system is negative for fever chills nausea vomiting abdominal pain or any joint swellings Patient would like to have labs done, last set of lab was in August Order placed Hydroxyzine 25 mg sent to be taken at night Follow-up next week Orders: Orders Comprehensive Met. Panel Today L30.8 - Other specified dermatitis Complete Blood Count Auto Diff Today L30.8 - Other specified dermatitis Medications: New hydroxyzine HCl 25 mg PO BEDTIME 10 tabs 0RF Discontinued lorazepam Discontinued Reason: Doctor's Order 0.5 mg PO DAILY PRN 30 tabs 0RF anxiety
== END 2024-05-26 09:22 | disposition home or self-care (01) ==
PROVIDERS: PCP Internal Medicine; Visit Provider Internal Medicine
DX: L30.8 Other specified dermatitis (principal)

== ENCOUNTER → 2024-05-26 08:58 | Outpatient (BNVA) | payer OTHER, SELFPAY | PROVIDERS: PCP Internal Medicine; Visit Provider Internal Medicine ==

== ENCOUNTER 2024-05-26 09:21 | Outpatient (REF) | payer OTHER, SELFPAY ==
[2024-05-26 10:54] LABS: MANUAL DIFF FLAG NO
[2024-05-26 10:59] LABS: Basophils Absolute Auto 0.1 X10*3/uL (0.0-0.2); Basophils Percent Auto 0.7 % (0-2); Eosinophils Percent Auto 0.3 % (0-4); Hematocrit 38.7 % (37.0-47.0); Hemoglobin 12.5 g/dl (12.0-16.0); Imm Gran Abs Auto 0.05 X10*3/uL (0.00-0.03); Imm Gran Pct Auto 0.7 % (0.0-0.4); Lymphocytes Absolute Auto 2.8 X10*3/uL (1.2-4.9); Lymphocytes Percent Auto 37.8 % (20-40); Mean Corpuscular HGB Conc 32.3 g/dl (31.0-35.0); Mean Platelet Volume 11.6 fL (9.4-12.3); Monocytes Absolute Auto 0.6 X10*3/uL (0.1-1.2); Monocytes Percent Auto 8.6 % (2-11); Neutrophils Absolute Auto 3.8 x10*3/uL (2.0-8.3); Neutrophils Percent Auto 51.9 % (45-73); Platelet Count 175 X10*3/uL (160-400); Red Blood Count 4.03 X10*6/uL (4.20-5.50); Red Cell Distribution Width 12.3 % (11.0-16.0); White Blood Count 7.3 X10*3/uL (4.8-10.8)
[2024-05-26 11:47] LABS: Alanine Aminotransferase 13 U/L (0-31); Albumin Level 4.2 g/dL (3.5-5.0); Alkaline Phosphatase 47 U/L (39-117); Anion Gap 11 (12-20); Aspartate Amino Transferase 15 U/L (5-31); Bilirubin Total 0.8 mg/dL (0.0-1.0); Blood Urea Nitrogen 7 mg/dL (9-16); Calcium 9.2 mg/dL (8.4-10.2); Carbon Dioxide 23 mmol/L (22-29); Chloride 108 mmol/L (96-108); Estimated Glomerular Filt Rate > 60; Glucose Random 82 mg/dL (60-115); Potassium 4.1 mmol/L (3.3-5.1); Sodium 138 mmol/L (135-145); Total Protein 7.1 g/dL (6.5-8.0)
== END 2024-05-26 09:22 | disposition home or self-care (01) ==
LOC: HO.HMGCLDS 09:21
PROVIDERS: PCP Internal Medicine; Visit Provider Internal Medicine
DX: L30.8 Other specified dermatitis (principal)
CPT/HCPCS: 36415; 80053; 85025; 96127; 99212

== ENCOUNTER → 2024-05-30 15:15 | Outpatient (BNVA) | payer OTHER, SELFPAY | PROVIDERS: PCP Internal Medicine; Visit Provider Internal Medicine | DX: L30.8 Other specified dermatitis (principal) | CPT/HCPCS: 99212 ==

== ENCOUNTER 2024-05-30 15:16 | Outpatient (AMB) | payer OTHER, SELFPAY ==
[2024-05-30 15:16] VITALS: BP 99/68; PULSE 78; O2SAT 99; BMI 17.8
--- NOTE | 2024-05-30 15:16 | MHC.PC.OV ---
Vital Signs 05/30/24 15:16 Height 5 ft 3 in Weight 100 lb 8 oz BMI 17.8 BP 99/68 Blood Pressure Location Rt brachial Position Sitting Pulse 78 Pulse Source Pulse Oximeter Pulse Oximetry (%) 99 Oxygen Delivery Method Room Air Intake Visit Reasons: follow up from 05/26 Allergies escitalopram [From Lexapro] Allergy (Severe, Verified 05/30/24 15:23) Hallucinations lamotrigine [Lamictal] Allergy (Unknown, Verified 05/30/24 15:23) Swelling of eyes/lips Medication List - Last Reconciled 05/30/24 by Valorie Leon MD cholecalciferol (vitamin D3) 25 mcg PO DAILY 90 days divalproex (Depakote) 250 mg PO BID hydroxyzine HCl 25 mg PO BEDTIME Tobacco use date assessed: 05/30/24 Dental Screening Dental Screen Date: 05/30/24 Did you have a dental visit in the last 12 months?: Yes Did you have a dental problem in the last 6 months where you did not have access to dental care?: No Was dental information given to patient?: Patient has dentist HPI follow up from 05/26 HPI Details Patient is a 39-year-old female came in today to have a follow-up on rash Which is mostly behind her ears left more than right She was prescribed hydroxyzine 25 mg which is helping with pruritus Right ear rash has almost resolved Left ear rash is still there I have sent clobetasol cream that she is to start using at night Labs reviewed with the patient We will set up a telemedicine visit in 2 weeks for follow-up If not resolved patient will need Dermatology appointment. Meanwhile avoid wearing earrings COUNT INCLUDES [facility] Medical History Anxiety, generalized Epilepsy Brain tumor Seizures Surgical History History of section [place] teeth extracted Brain tumor Family History Father Diabetes mellitus Mother Medical history non-contributory Sister Asthma Sister No problems noted. Son No problems noted. Social History Household Members: Family and Children Household Members Other:: Pt lives with 11 yo son, grandmother, and uncle. Mother lives downstairs Housing: House Alcohol intake: never Patient Tobacco Use Status: Never used Tobacco e-Cigarette/Vaping Use: Never Used service: No Current occupational status: unemployed Cognitive needs: No Hearing needs: No Vision needs: No Questionnaire PHQ-9 Over the last 2 weeks, how often have you been bothered by any of the following problems? Depression Screening Interpretation: Negative Depression Screening Done: Yes Source: Developed by Drs. Rubens Jhaveri, Estrada Perera and colleagues, with an educational anjel from [employer]. Thrive Questionnaire Date Thrive assessed: 05/26/24 I am a: Patient What is your living situation today?: I have a steady place to live Within the past 12 months, did the food you bought not last and you didn't have the money to get more?: Never true Within the past 12 months, did you worry whether your food would run out before you got money to buy more?: Never true Do you have trouble paying for medicines?: No Do you have trouble getting transportation to medical appointments?: No Do you have trouble paying your heating and electricity bill?: No Do you have trouble taking care of your child, family member or friend?: No Do you have trouble with day-to-day activities such as bathing, preparing meals, shopping, managing finances, etc.?: No Are you currently unemployed and looking for a job?: No Are you interested in more education?: Yes Currently or been in a relationship where the following occur: No concerns reported THRIVE Score: 0 AUDIT C Alcohol Use Questionnaire (AUDIT-C) 1. How often do you have a drink containing alcohol?: Never 3. How often do you have six or more drinks on one occasion?: Never Total Score: 0 Score Reviewed/Action Taken: Yes YOSHI-7 AMB Questionnaire YOSHI-7 Date YOSHI - 7 assessed: 08/20/23 Source: Developed by Drs. Rubens Jhaveri, Estrada Perera and colleagues, with an educational anjel from [employer]. Review of Systems Const Denies chills and Denies fever(s) ENT Denies epistaxis and Denies nasal discharge Card Denies chest pain Resp Denies chest congestion, Denies cough and Denies hemoptysis GI Denies diarrhea and Denies nausea Neuro Reports no additional complaints Psych Reports no additional complaints Endo Reports no additional complaints Physical exam (Primary Care) Vital Signs: Last Vital Signs Pulse 78 05/30/24 15:16 BP 99/68 05/30/24 15:16 Pulse Ox 99 05/30/24 15:16 Oxygen Delivery Method Room Air 05/30/24 15:16 BMI result Body Mass Index 17.8 Tobacco/Smoking Status: Tobacco use Status Tobacco use date assessed 05/30/24 05/30/24 15:23 Patient Tobacco Use Status Never used Tobacco 05/30/24 15:18 e-Cigarette/Vaping Use Never Used 05/30/24 15:18 Depression Screening Interpretation: Negative Thrive Assessment: Date of Thrive Assessment Date Thrive assessed 05/26/24 05/30/24 15:18 Currently or been in a relationship where the following occur: No concerns reported Const General: cooperative, comfortable and no acute distress Orientation/consciousness: patient oriented x3 HENMT Head: Yes normocephalic Eyes General: appearance normal, both eyes and all related structures Neck Neck: Yes supple Resp Effort & Inspection: normal respiratory effort, no cough and no stridor Cardio Rhythm: regular rhythm Heart sounds: S1 normal heart sound present and S2 normal heart sound present Skin Other: Maculopapular rash below ears left more than right General skin exam: turgor normal Neuro General: patient oriented x3, tone normal and moves all extremities Extrem Right lower extremity: no edema Left lower extremity: no edema Coding Level of Care Code Est Pt Level 3 (55983) Diagnoses Pruritic dermatitis L30.8 Assessment & Plan Assessment & Plan (1) Pruritic dermatitis: Code(s): L30.8 - Other specified dermatitis Category: Medical Plan Patient is a 39-year-old female came in today to have a follow-up on rash Which is mostly behind her ears left more than right She was prescribed hydroxyzine 25 mg which is helping with pruritus Right ear rash has almost resolved Left ear rash is still there I have sent clobetasol cream that she is to start using at night Labs reviewed with the patient We will set up a telemedicine visit in 2 weeks for follow-up If not resolved patient will need Dermatology appointment. Meanwhile avoid wearing earrings Medications: New clobetasol 0.05% 1 appl topical BEDTIME 15 grams 0RF 14 days
== END 2024-05-30 15:43 | disposition home or self-care (01) ==
PROVIDERS: PCP Internal Medicine; Visit Provider Internal Medicine
DX: L30.8 Other specified dermatitis (principal)

== ENCOUNTER 2024-06-15 08:33 | Outpatient (AMB) | payer OTHER, SELFPAY ==
--- NOTE | 2024-06-15 09:22 | MHC.PC.OV ---
Intake Visit Reasons: 2Wk F/U rash behind ears Allergies escitalopram [From Lexapro] Allergy (Severe, Verified 05/30/24 15:23) Hallucinations lamotrigine [Lamictal] Allergy (Unknown, Verified 05/30/24 15:23) Swelling of eyes/lips Medication List - Last Reconciled 06/15/24 by Valorie Leon MD cholecalciferol (vitamin D3) 25 mcg PO DAILY 90 days clobetasol 0.05% 1 appl topical BEDTIME 14 days divalproex (Depakote) 250 mg PO BID hydroxyzine HCl 25 mg PO BEDTIME Tobacco use date assessed: 05/30/24 Dental Screening Dental Screen Date: 05/30/24 HPI 2Wk F/U rash behind ears HPI Details Patient was having rash on her arms and behind the ears she was started on Hydroxyzine which did help but the rash behind continued we talked about possibility of earnings causing skin irritation clobetasol cream was given and she tool off earnings rash has resolved PFSH Medical History Anxiety, generalized Epilepsy Brain tumor Seizures Surgical History History of section [place] teeth extracted Brain tumor Family History Father Diabetes mellitus Mother Medical history non-contributory Sister Asthma Sister No problems noted. Son No problems noted. Social History Household Members: Family and Children Household Members Other:: Pt lives with 11 yo son, grandmother, and uncle. Mother lives downstairs Housing: House Alcohol intake: never Patient Tobacco Use Status: Never used Tobacco e-Cigarette/Vaping Use: Never Used service: No Current occupational status: unemployed Cognitive needs: No Hearing needs: No Vision needs: No Questionnaire Thrive Questionnaire Date Thrive assessed: 05/26/24 YOSHI-7 AMB Questionnaire YOSHI-7 Date YOSHI - 7 assessed: 08/20/23 Source: Developed by Drs. Rubens Jhaveri, Liane Shannon, Estrada Macias and colleagues, with an educational anjel from [employer]. Review of Systems Const All systems reviewed & are unremarkable except as noted in HPI and below Physical exam (Primary Care) Tobacco/Smoking Status: Tobacco use Status Tobacco use date assessed 05/30/24 05/30/24 15:23 Patient Tobacco Use Status Never used Tobacco 05/30/24 15:18 e-Cigarette/Vaping Use Never Used 05/30/24 15:18 Thrive Assessment: Date of Thrive Assessment Date Thrive assessed 05/26/24 05/30/24 15:18 Telehealth Telehealth Telehealth Platform: [employer] Location of provider rendering services: practice address Location of patient: address on file Patient Identification confirmed using: Name, : Yes Telehealth method: voice only Patient verbally consented to treatment: Yes Patient verbally consented to billing insurance company: Yes Patient informed of any privacy concerns related to visit: Yes Coding Level of Care Code Tele Est Pt Level 3 (58270) Diagnoses Pruritic dermatitis L30.8 Assessment & Plan Assessment & Plan (1) Pruritic dermatitis: Code(s): L30.8 - Other specified dermatitis Category: Medical Plan Patient was having rash on her arms and behind the ears she was started on Hydroxyzine which did help but the rash behind continued we talked about possibility of earnings causing skin irritation clobetasol cream was given and she tool off earnings rash has resolved 13 min apt
== END 2024-06-15 12:06 | disposition home or self-care (01) ==
LOC: HO.HMCC 08:33
PROVIDERS: PCP Internal Medicine; Visit Provider Internal Medicine
DX: L30.8 Other specified dermatitis (principal)

== ENCOUNTER → 2024-06-15 08:33 | Outpatient (BNVA) | payer OTHER, SELFPAY | PROVIDERS: PCP Internal Medicine; Visit Provider Internal Medicine ==

== ENCOUNTER 2025-05-14 10:03 | Outpatient (AMB) | payer OTHER, SELFPAY ==
--- NOTE | 2025-05-14 10:10 | MHC.OFFVIS ---
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 She was doing well with no recent seizures. Headaches were also control. Depakote was helping. No obvious side-effects. She has not started any new medicine and did not have any new medical problems. [facility] Medical History Anxiety, generalized Epilepsy Brain tumor Seizures Surgical History History of section [place] teeth extracted Brain tumor Family History Father Diabetes mellitus Mother Medical history non-contributory Sister Asthma Sister No problems noted. Son No problems noted. Social History Household Members: Family and Children Household Members Other:: Pt lives with 11 yo son, grandmother, and uncle. Mother lives downstairs Housing: House Alcohol intake: never Patient Tobacco Use Status: Never used Tobacco e-Cigarette/Vaping Use: Never Used service: No Current occupational status: unemployed Cognitive needs: No Hearing needs: No Vision needs: No Review of Systems Const Details: No headaches or seizure-like episodes. No significant change in weight. Physical Exam Neuro Other: Mental Status: Alert and oriented to person, place, and time. Normal attention. Normal spontaneous speech, fluency, and comprehension. No obvious issues with mood and memory. Affect is appropriate. Cranial Nerves: CN II: Visual abel full to confrontation, visual acuity intact. CN III, IV, : Pupils equal, round, reactive to light and accommodation. Extraocular movements are normal. CN V: Facial sensation is normal. CN VII: Facial movements symmetrical. CN VIII: Hearing intact to bedside conversation is normal. CN IX, X: Palate elevates symmetrically. CN XI: Shoulder shrug and head turn symmetrical. CN XII: Tongue midline without atrophy or fasciculations. Extrapyramidal: Full facial expressions and blinking. No rigidity. Movements are appropriate with no tremor or abnormality. Speech: Normal; no dysarthria or tremor. Assessment & Plan Assessment & Plan (1) Epilepsy: Comment: CT brain WO at [facility] in January 2023: s/p craniotomy, s/p [employer] shunt, Right frontal WM encephalomalacia, mod cerebellar atrophy EEG at off in Oct 2021: one gen sharp and slow wave complex EEG at office in May 2020: gen spike and wave discharges Routine EEG at office in 2011: gen polyspike and wave discharges Routine EEG at office in 2017: gen polyspike and wave discharges Post fossa shunting procedure in [facility] in 1993 before the surgery in [place] Post fossa benign tumor removal [facility] in 1993. Code(s): G40.909 - Epilepsy, unspecified, not intractable, without status epilepticus Category: Medical Qualifiers: Epilepsy type: due to external causes Intractability: not intractable Status epilepticus: without status epilepticus Qualified Code(s): G40.509 - Epileptic seizures related to external causes, not intractable, without status epilepticus (2) Migraine: Code(s): G43.909 - Migraine, unspecified, not intractable, without status migrainosus Category: Medical Qualifiers: Migraine type: migraine (< 15 days per month) without aura Status migrainosus presence: without status migrainosus Intractability: not intractable Qualified Code(s): G43.009 - Migraine without aura, not intractable, without status migrainosus (3) S/P craniotomy: Code(s): Z98.890 - Other specified postprocedural states Category: Surgical (4) S/P ventriculoperitoneal shunt: Code(s): Z98.2 - Presence of cerebrospinal fluid drainage device Category: Surgical Plan Impression: 1. Childhood history of cerebellar astrocytoma status post resection and [employer] shunting. 2. 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 Generalized seizure disorder from above 4. Migraine without aura Recommendations: 1. Depakote 250 mg 1 twice a day, which has been helping both with seizures and migraine and 2. Sumatriptan 50 mg 1 as needed Medications: New divalproex (Depakote) 1 in the morning and 2 at night 250 mg PO BID 180 tabs 1RF Coding Level of Care Code Est Pt Level 4 (78004) Diagnoses Nonintractable epilepsy due to external causes, without status epilepticus G40.509 Epilepsy type: due to external causes Intractability: not intractable Status epilepticus: without status epilepticus Migraine without aura and without status migrainosus, not intractable G43.009 Migraine type: migraine (< 15 days per month) without aura Status migrainosus presence: without status migrainosus Intractability: not intractable S/P craniotomy Z98.890 S/P ventriculoperitoneal shunt Z98.2
--- OUTSIDE RECORDS SUMMARY | 2025-05-14 11:41 | XMS_ITS | Clinical Summary ---
Author Organization [employer] Address [address] [facility] [address] [place] [address] Care Team Providers Care Grill Prep Cook Name Role Phone Unavailable Primary Care Provider Unavailabl e Allergies No known active allergies Medications divalproex (Depakote) 250 MG EC tablet TAKE 1 TABLET BY MOUTH IN THE MORNING AND 2 TABLETS AT BEDTIME FOR 90 DAYS 4 Active D3-1000 25 MCG (1000 UT) capsule Take 25 mcg by mouth Once per day. 4 Active SUMAtriptan (Imitrex) 50 MG tablet TAKE 1 TABLET BY MOUTH EVERY DAY NEEDED FOR 30 DAYS 4 Active Sod Fluoride-Potassi um Nitrate 1.1-5 % pasteIndications :Dental caries [place] teeth for 2 minutes, morning and night. Spit, do not rinse. Do not eat or drink anything for 30 minutes following brushing. 112 g 3 4 Active Sodium Fluoride 1.1 % creamIndications :Dental caries [place] teeth for 2 minutes, morning and night. Spit, do not rinse. Do not eat or drink anything for 30 minutes following use. 112 g 3 4 Active chlorhexidine (Peridex) 0.12 % solutionIndicati ons:History of tooth extraction, unspecified edentulism class Swish 15 mL morning and night for 1 minute. Spit, do not swallow. Do not eat or drink for 30 minutes following use. 473 mL 5 Active Active Problems Problem Noted Date Diagnosed Date Labial lesion 05/29/2024 Underweight 05/29/2024 Social History Tobacco Use Types Packs/Day Years Used Date Smoking Tobacco: Never Passive Smoke Exposure: Never Smokeless Tobacco: Never Tobacco Cessation:Counseling Given: Not Answered Comments Unknown Sex and Gender Information Value Date Recorded Sex Assigned at Female 04/06/2024 11:09 AM EDT Legal Sex Female 10:04 AM EDT Gender Identity Female 04/06/2024 11:09 AM EDT Sexual Orientation Choose not to disclose 2023 11:09 AM EDT Last Filed Vital Signs Vital Sign Reading Time Taken Comments Blood Pressure 90/60 12/20/2024 2:25 PM EDT Pulse 74 06/21/2024 1:11 PM EST Temperature - - Respiratory Rate - - Oxygen Saturation - - Inhaled Oxygen Concentration - - Weight - - Height - - Body Mass Index - - Plan of Treatment Upcoming Encounters Date Type Department Care Team (Late st Contact Info) Description 05/29/2025 8:45 AM EDT Office Visit [facility] [address] [place] [address] Andrew Laureano Health Maintenance Due Date Last Done Comments Depression Screening 1986 HIV Screening 1986 SDOH Screening 1986 Disability Screening 1986 Alcohol/Substance Use Screening 1998 Family Planning (PISQ) 2001 Hepatitis C Screening 02/16/2004 Hepatitis B Vaccines (1 of 3 - 19+ 3-dose series) 2005 Pap Smear 2007 Cervical Cancer Screening 02/16/2016 HPV/Cotest 02/16/2016 Dental Oral Exam 10/07/2024 04/07/2024 Dental Prophylaxis 10/07/2024 04/07/2024 Dental X-Ray: Bitewings 04/08/2025 04/07/2024 COVID-19 Vaccine ( season) 2025 Influenza Vaccine (#1) 2025 Tobacco Screening 12/20/2025 12/20/2024 Dental X-Ray: Full Mouth 12/22/2027 12/20/2024, 08 DTaP/Tdap/Td Vaccines (2 - Td or Tdap) 07/12/2028 07/12/2018 Zoster Vaccines (1 of 2) 02/16/2036 RSV Patients and Patients Aged 60 years or older (1 - 1-dose 75+ series) 2061 HPV Vaccines Completed 02/20/2025, 03/0 02/2025, 10/13/2024, Additional history exists HIB Vaccines Aged Out No longer eligi ble based on patient's age to complete this topic Hepatitis A Vaccines Aged Out No long er eligible based on patient's age to complete this topic IPV Vaccines Aged Out No longer eligi ble based on patient's age to complete this topic Meningococcal B Vaccine Aged Out No l onger eligible based on patient's age to complete this topic Meningococcal Vaccine Aged Out No feng gia eligible based on patient's age to complete this topic Pneumococcal Vaccine: Pediatrics (0 to 5 Years) and At-Risk Patients (6 to 49) Years Aged Out No longer eligible based on patient's age to complete this topic RSV under 20 months Aged Out No longe r eligible based on patient's age to complete this topic Rotavirus Vaccines Aged Out No longer eligible based on patient's age to complete this topic Procedures Procedure Name Priority Date/Time Associated Diagnosis Comments PANORAMIC RADIOGRAPHIC IMAGE Routine 12/20/2024 2:00 PM EDT Periodontal disease Dental caries PROPHYLAXIS - ADULT Routine 04/07/2024 1 0:00 AM EDT Dental calculus Dental caries INTRAORAL - COMPLETE SERIES OF RADIOGRAPHIC IMAGES Routine 04/07/2024 10:00 AM EDT Dental calculus Dental caries COMPREHENSIVE ORAL EVALUATION - NEW OR ESTABLISHED PATIENT Routine 04/07/2024 10:00 AM EDT Dental calculus Dental caries from Last 3 Months or Most Recently Relevant to Health Maintenance Insurance [facility] STAND ADULT
--- OUTSIDE RECORDS SUMMARY | 2025-05-14 11:41 | XMS_ITS | Clinical Summary ---
Author Organization [facility] it Address [address] [place] [address] Care Team Providers Care Outreach Director Name Role Phone Unavailable Primary Care Provider Unavailabl e Social History Tobacco Use Types Packs/Day Years Used Date Smoking Tobacco: Never Assessed Comments Unknown Sex and Gender Information Value Date Recorded Sex Assigned at Not on file Legal Sex Female 3:31 PM EST Gender Identity Not on file Sexual Orientation Not on file Plan of Treatment Health Maintenance Due Date Last Done Comments DTaP,Tdap,and Td Vaccines (1 - Tdap) 2005 Hepatitis B Vaccines (1 of 3 - 19+ 3-dose series) 2005 Cervical Cancer Screening: P ap Smear 2007 HPV Vaccines (1 - 3-dose SCD M series) 2013 HIV Screening 07/08/2022 Hepatitis C Screening 07/08/2022 Social Influencers of Health Screening 07/08/2022 Depression Screening 08/09/2024 COVID-19 Vaccine (1 - 2023-2 5 season) 2025 Influenza Vaccine (#1) 2025 RSV Immunization Adult Patie nts (1 - 1-dose 75+ series) 2061 HIB Vaccines Aged Out No longer eligi ble based on patient's age to complete this topic Hepatitis A Vaccines Aged Out No long er eligible based on patient's age to complete this topic IPV Vaccines Aged Out No longer eligi ble based on patient's age to complete this topic MMR Vaccines Aged Out No longer eligi ble based on patient's age to complete this topic Meningococcal ACWY Vaccine Aged Out N o longer eligible based on patient's age to complete this topic Meningococcal B Vaccine Aged Out No l onger eligible based on patient's age to complete this topic Pneumococcal Vaccine: Pediat rics (0 to 5 Years) and At-Risk Patients (6 to 49 Years) Aged Out No longer eligible b ased on patient's age to complete this topic RSV Immunization Patients Un marcelina 20 months Aged Out No longer eligible b ased on patient's age to complete this topic Varicella Vaccines Aged Out No longer eligible based on patient's age to complete this topic
--- OUTSIDE RECORDS SUMMARY | 2025-05-14 11:41 | XMS_ITS | Encounter Summary ---
Author Organization [employer] Address [address] [facility] [address] [place] [address] Care Team Providers Care Steel Welder Name Role Phone Unavailable Primary Care Provider Unavailabl e Reason for Visit * Reason Onset Date Comments rs appt 12/15/2024 Encounter Details Date Type Department Care Team (Late st Contact Info) Description 12/15/2024 Telephone [facility] ADULT [facility] [address] [place] [address] Adria Allison DMD [address] [place] [address] rs appt Social History Tobacco Use Types Packs/Day Years Used Date Smoking Tobacco: Never Passive Smoke Exposure: Never Smokeless Tobacco: Never Comments Unknown Sex and Gender Information Value Date Recorded Sex Assigned at Female 04/06/2024 11:09 AM EDT Legal Sex Female 10:04 AM EDT Gender Identity Female 04/06/2024 11:09 AM EDT Sexual Orientation Choose not to disclose 2023 11:09 AM EDT documented as of this encounter Miscellaneous Notes * Telephone Encounter - Gianni Krueger - 12/15/2024 8:40 AM EDT Pt needs last appt to be rs for when sudol is here. Please contact pt to caregiver services home her a new appt date.cs documented in this encounter Plan of Treatment Upcoming Encounters Date Type Department Care Team (Late st Contact Info) Description 05/29/2025 8:45 AM EDT Office Visit [facility] ADULT [facility] [address] [place] [address] Andrew Laureano documented as of this encounter Visit Diagnoses Not on filedocumented in this encounter
--- OUTSIDE RECORDS SUMMARY | 2025-05-14 11:41 | XMS_ITS | Encounter Summary ---
Author Organization [facility] [facility] Address [address] [facility] 7[address] [place] [address] Care Team Providers Care Tow Motor Mechanic Name Role Phone Unavailable Primary Care Provider Unavailabl e Reason for Visit * Reason Onset Date Comments rs appt 07/19/2024 Encounter Details Date Type Department Care Team (Late st Contact Info) Description 07/19/2024 Telephone [facility] ADULT D[facility] [address] [place] [address] Adria Allison DMD [address] [place] [address] rs appt Social History Tobacco Use Types [...] encounter Miscellaneous Notes * Telephone Encounter - Megan Perez - 07/19/2024 9:32 AM EST Patient called in to reschedule 10:30 appt. Will take morning or afternoon. Please reach out to patient for rescheduling DR documented in this encounter Plan of Treatment Upcoming Encounters Date Type Department Care Team (Late st Contact Info) Description 05/29/2025 8:45 AM EDT Office Visit [facility] ADULT [facility] [address] [place] [address] Andrew Laureano documented as of this encounter Visit Diagnoses Not on filedocumented in this encounter
== END 2025-05-14 10:21 | disposition home or self-care (01) ==
LOC: HO.HSM 10:03
PROVIDERS: PCP Internal Medicine; Referring Provider Internal Medicine; Visit Provider Psychiatry & Neurology Neurology
DX: G40.509 Epileptic seizures related to external causes, not intractable, without status epilepticus (principal); G43.009 Migraine without aura, not intractable, without status migrainosus; Z98.890 Other specified postprocedural states; Z98.2 Presence of cerebrospinal fluid drainage device
CPT/HCPCS: 99214

== ENCOUNTER → 2025-05-14 10:03 | Outpatient (BNVA) | payer OTHER, SELFPAY | PROVIDERS: PCP Internal Medicine; Referring Provider Internal Medicine; Visit Provider Psychiatry & Neurology Neurology | DX: G40.509 Epileptic seizures related to external causes, not intractable, without status epilepticus (principal); G43.009 Migraine without aura, not intractable, without status migrainosus; Z98.2 Presence of cerebrospinal fluid drainage device; Z98.890 Other specified postprocedural states | CPT/HCPCS: 99212 ==

== ENCOUNTER 2025-05-18 10:45 | Outpatient (REF) | payer OTHER, SELFPAY ==
[2025-05-18 14:50] LABS: Chlamydia pneumoniae PCR Not Detected (Not Detect.); Coronavirus 229E PCR Not Detected (Not Detect.); Coronavirus HKU1 PCR Not Detected (Not Detect.); Coronavirus NL63 PCR Not Detected (Not Detect.); Coronavirus OC43 PCR Not Detected (Not Detect.); RSV PCR Not Detected (Not Detect.); Rhino/Enterovirus PCR Not Detected (Not Detect.); SARS-CoV-2 PCR Not Detected (Not Detect.)
[2025-05-18 15:32] LABS: Influenza A H1 PCR Not Detected (Not Detect.); Influenza A H1-2009 PCR Not Detected (Not Detect.); Influenza A H3 PCR Not Detected (Not Detect.)
== END 2025-05-18 10:46 | disposition home or self-care (01) ==
LOC: HO.LAB 10:45
PROVIDERS: Physician Assistant; PCP Internal Medicine
DX: J06.9 Acute upper respiratory infection, unspecified (principal); B34.9 Viral infection, unspecified
CPT/HCPCS: 87633; 99212

== ENCOUNTER 2025-05-18 10:45 | Outpatient (AMB) | payer OTHER, SELFPAY ==
[2025-05-18 10:48] VITALS: BP 100/52; PULSE 76; TEMP 36.7; O2SAT 98; BMI 18.6
--- NOTE | 2025-05-18 10:48 | AM.OFFWIN_ITS ---
Intake Vital Signs 05/18/25 10:48 Height 5 ft 3 in Weight 105 lb BMI 18.6 BP 100/52 L Blood Pressure Location Rt brachial Position Sitting Pulse 76 Pulse Source Pulse Oximeter Temp 98.1 F Temp Source Oral Pulse Oximetry (%) 98 Oxygen Delivery Method Room Air Intake Visit Reasons: EP-body ache, headaches, ears ache Intake Note: pt presents with body aches, headaches, dizziness and mild RT ear each, all s/s developing last night after a cold sore developed in the morning Patient Tobacco Use Status: Never used Tobacco Allergies escitalopram (From Lexapro) Allergy (Severe, Verified 05/18/25 10:51) Hallucinations lamotrigine (Lamictal) Allergy (Unknown, Verified 05/18/25 10:51) Swelling of eyes/lips Do you need a note to return to daycare/school/sports/work: No HPI HPI Comments History of Present Illness Details History - The patient is a 40-year-old female pr esenting with body aches, headache, and cold sore for one day. - She reports generalized body aches, pa rticularly in the legs and arms, starting last night, described as muscular and severe. - She denies recent physical activity ch anges or urinary symptoms. - The headache is accompanied by dizzine ss and weakness, with no associated cough or congestion. - A cold sore appeared this morning on h er left lower lip, treated with [id number] Abreva. - No history of kidney issues - No current nausea reported but she get s nauseous with her headaches. Physical Exam General: Cooperative, healthy appearing, comfortable and no acute distress Orientation/consciousness: Patient oriented x3 Limitations: No limitations Head: Normal to inspection Ears: Hearing grossly normal bilaterally, external ears normal and TM's normal bilaterally Nose: Normal external nose present, Normal nares present and No nasal discharge present Face and sinus: Normal facial exam and Sinuses tender Mouth: Normal oral and palatal mucosa present and moist mucous membranes Throat: Tonsils normal, uvula midline. Posterior oropharynx erythema, no exudates Eyes: Appearance normal, both eyes and all related structures Neck: Normal visual inspection, full ROM Respiratory: Clear to auscultation bilaterally. Normal respiratory effort, able to speak in complete sentences, not actively coughing, no respiratory distress, not tachypneic, no tripod positioning and no use of accessory muscles Cardiovascular: Regular rate and rhythm. Normal S1 and S2 Skin: No rashes or lesions noted Neuro: Patient oriented x3, gait normal Extremities: Normal to inspection and Yes no clubbing, cyanosis or edema Review of Systems - General: Reports body aches, weakness, and dizziness - Neurological: Reports headache - Dermatological: Reports cold sore - Respiratory: Denies cough or congestio n - Genitourinary: Denies changes in urina tion or urine color All systems reviewed and are unremarkable except as noted in HPI [facility] Medical History Anxiety, generalized Epilepsy Brain tumor Seizures Surgical History (Reviewed 06/15/24 @ 09: by Valorie Leon MD) History of section Catherine teeth extracted Brain tumor Family History Father Diabetes mellitus Mother Medical history non-contributory Sister Asthma Sister No problems noted. Son No problems noted. Social History Household Members: Family and Children Household Members Other:: Pt lives with 11 yo son, grandmother, and uncle. Mother lives downstairs Housing: House Alcohol intake: never Patient Tobacco Use Status: Never used Tobacco e-Cigarette/Vaping Use: Never Used service: No Current occupational status: unemployed Cognitive needs: No Hearing needs: No Vision needs: No Physical Exam Vital Signs: Last Vital Signs Temp 98.1 F 05/18/25 10:48 Pulse 76 05/18/25 10:48 BP 100/52 L 05/18/25 10:48 Pulse Ox 98 05/18/25 10:48 Oxygen Delivery Method Room Air 05/18/25 10:48 BMI result Body Mass Index 18.6 Assessment & Plan Assessment & Plan (1) Acute viral syndrome: Code(s): B34.9 - Viral infection, unspecified Plan: Patient was informed and verbally consented to the use of an ambient scribe for clinic note documentation during this visit. Viral Syndrome - VSS, pt well appearing and PE unremarkable. - Conducted viral panel. - Recommend [id number] Abreva for treatment. - Recommend Tylenol for headache management, 1000 mg every 8 hours. - Advised maintain hydration. - Recommend symptomatic treatment with naproxen or ibuprofen for muscle pain. - Advise rest and monitor for symptom changes. - Follow up with PCP if worsening of symptoms. Orders: Orders Resp Pathogen Panel - [facility] Today J06.9 - Acute upper respiratory infection, unspecified Coding Level of Care Code Est Pt Level 3 (19218) Diagnoses Acute viral syndrome B34.9
== END 2025-05-18 11:36 | disposition home or self-care (01) ==
PROVIDERS: PCP Internal Medicine; Visit Provider Physician Assistant
DX: B34.9 Viral infection, unspecified (principal)

== ENCOUNTER 2025-06-05 12:09 | Outpatient (AMB) | payer OTHER, SELFPAY ==
--- OUTSIDE RECORDS SUMMARY | 2025-05-29 08:45 | XMS_ITS | Encounter Summary ---
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 Name Role Phone Unavailable Primary Care Provider Unavailabl e Reason for Visit * Reason Comments Routine Cleaning Dental Exam Encounter Details Date Type Department Care Team (Late st Contact Info) Description 05/29/2025 8:45 AM EDT Office Visit [facility] ADULT DENTAL [address] [place] [address] Andrew Laureano Dental calculus (Primary Dx); Dental caries Social History Tobacco Use Types Packs/Day Years [...] AM EDT documented as of this encounter Last Filed Vital Signs Vital Sign Reading Time Taken Comments Blood Pressure 108/64 05/29/2025 8:47 AM EDT Pulse 65 05/29/2025 8:47 AM EDT Temperature - - Respiratory Rate - - Oxygen Saturation - - Inhaled Oxygen Concentration - - Weight - - Height - - Body Mass Index - - documented in this encounter Progress Notes * Andrew Laureano - 05/29/2025 8:45 AM EDT Patient ID: Shaylee Kwan is a 40 y.o. female. Time Out: Timeout Date: 05/29/25, Timeout Time: 0848 Location: [facility] Tooth: Maxilla and Mandible Procedure: Exam, X-rays, and Prophylaxis Verified the above with patient, child development assistant, and provider. Confirmed via patient's chart, intraorally and by radiographs. Customer Marketing Intern: not applicable Medical Hx: Vitals: Blood pressure 108/64, pulse 65. Medications, Med Hx reviewed with patient and updated in chart. Treatment Provided Dental procedures in this visit D1110 - PROPHYLAXIS - ADULT (Completed) Service provider: Andrew Laureano Billing provider: Adria Allison DMD [id number] - ORAL HYGIENE INSTRUCTIONS (Completed) Service provider: Andrew Laureano Billing provider: Adria Allison DMD [id number] - CASE PRESENTATION, DETAILED AND EXTENSIVE TREATMENT PLANNING (Completed) Service provider: Andrew Laureano Billing provider: Adria Allison DMD [id number] - BITEWINGS - 4 RADIOGRAPHIC IMAGES (Completed) Service provider: Andrew Laureano Billing provider: Adria Allison DMD [id number] - INTRAORAL - PERIAPICAL FIRST RADIOGRAPHIC IMAGE (Completed) Service provider: Andrew Laureano Billing provider: Adria Allison DMD [id number] - INTRAORAL - PERIAPICAL EACH ADDITIONAL RADIOGRAPHIC IMAGE (Completed) Service provider: Andrew Laureano Billing provider: Adria Allison DMD Instruments Used: Ultrasonic Scalers and Prophy angle Fluoride: N/A Oral Cancer Screening: No lesions Head/Neck Exam: No Lesions Calculus: Light and Generalized Plaque: Light and Localized Stain: Light and Localized Bleeding: Light and Localized Gingiva: Healthy and Perio Charting Completed [place]: Fair Perio Chart: Completed Oral hygiene instructions provided to patient including brushing technique and flossing. Dental exam done by . Recommendations: Oketo two times daily, modified menendez technique, Floss daily Recall Frequency: 6 mo NV: 6mr Hygienist: Andrew Laureano RDH * Adria Allison DMD - 05/29/2025 8:45 AM EDT Dental procedures in this visit D1110 - PROPHYLAXIS - ADULT (Completed) Service provider: Andrew Laureano Billing provider: Adria Allison DMD [id number] - ORAL HYGIENE INSTRUCTIONS (Completed) Service provider: Andrew Laureano Billing provider: Adria Allison DMD [id number] - CASE PRESENTATION, DETAILED AND EXTENSIVE TREATMENT PLANNING (Completed) Service provider: Andrew Laureano Billing provider: Adria Allison DMD [id number] - BITEWINGS - 4 RADIOGRAPHIC IMAGES (Completed) Service provider: Andrew Laureano Billing provider: Adria Allison DMD [id number] - INTRAORAL - PERIAPICAL FIRST RADIOGRAPHIC IMAGE (Completed) Service provider: Andrew Laureano Billing provider: Adria Allison DMD [id number] - INTRAORAL - PERIAPICAL EACH ADDITIONAL RADIOGRAPHIC IMAGE (Completed) Service provider: Andrew Laureano Billing provider: Adria Allison DMD [id number] - PERIODIC ORAL EVALUATION - ESTABLISHED PATIENT (Completed) Service provider: Adria Allison DMD Billing provider: Adria Allison DMD Patient ID: Shaylee Kwan is a 40 y.o. female. Time Out: No data recorded Location: [facility] Tooth: all Procedure: Exam Verified the above with patient, child development assistant, and provider. Confirmed via patient's chart, intraorally and by radiographs. Customer Marketing Intern: not applicable Chief Complaint Patient presents with Routine Cleaning Dental Exam Medical Hx: Vitals: Blood pressure 108/64, pulse 65. Medical History[1] Medications: Encounter Medications[2] Objective HPI: no pain or discomfort per patient Soft Tissue Exam No findings documented this visit Head and Neck Exam: all structures examined Details: no swellings, ulcerations or lymphadenopathies OCS: negative Dental Exam No new treatment planned at this time Recommendation still stands to remove #16,17 Pt states she is not ready to proceed at this time Reviewed risk of delaying treatment including worsening decay, pain and infection Pt expressed understanding, all questions answered Radiographic Interpretation: Associated radiographs for today's visit were reviewed and finding(s) were discussed with the patient. Findings include: see above Hard Tissue Exam: Decay noted - see charting and treatment plan Perio Dx: Localized Chronic Periodontitis Stage: I Grade: B Reference tooth chart for additional findings. Oral Cancer Risk: Low Risk Oral Hygiene Instructions: Oketo two times daily, modified menendez technique, Floss daily, Electric toothbrush, Soft bristle toothbrush, Oketo Tongue, Anti- sensitivity toothpaste Caries Risk Assessment: Medium- one risk factor Assessment/Plan EXT #16,17 when pt is ready Recare Patient tolerated procedure well, all questions answered and expressed understanding. Dismissed in good condition. NV: EXT #16,17 when pt is ready Next Hyg Visit: Recare Rn Ent: Yvette Boewr Dentist: Adria Allison DMD [1] Past Medical History: Diagnosis Date Seizures (CMS/HCC) ([facility]) [2] Outpatient Encounter Medications as of 05/29/2025 Medication Sig Dispense Refill chlorhexidine (Peridex) 0.12 % solution Swish 15 mL morning and night for 1 minute. Spit, do not swallow. Do not eat or drink for 30 minutes following use. 473 mL 0 D3-1000 25 MCG (1000 UT) capsule Take 25 mcg by mouth Once per day. divalproex (Depakote) 250 MG EC tablet TAKE 1 TABLET BY MOUTH IN THE MORNING AND 2 TABLETS AT BEDTIME FOR 90 DAYS Sod Fluoride-Potassium Nitrate 1.1-5 % paste Oketo teeth for 2 minutes, morning and night. Spit, donot rinse. Do not eat or drink anything for 30 minutes following brushing. 112 g 3 Sodium Fluoride 1.1 % cream Oketo teeth for 2 minutes, morning and night. Spit, do not rinse. Do not eat or drink anything for 30 minutes following use. 112 g 3 SUMAtriptan (Imitrex) 50 MG tablet TAKE 1 TABLET BY MOUTH EVERY DAY NEEDED FOR 30 DAYS No facility-administered encounter medications on file as of 05/29/2025. documented in this encounter Plan of Treatment Upcoming Encounters Date Type Department Care Team (Late st Contact Info) Description 11/28/2025 9:30 AM EDT Office Visit [facility] ADULT DENTAL [address] [place] [address] Andrew Laureano Scheduled Orders Name Type Priority Associated Diagnoses Orde r Schedule PROPHYLAXIS - ADULT Dental Routine 1 Occ urrences starting 05/29/2025 PERIODIC ORAL EVALUATION - ESTABLISHED PATIENT Dental Routine 1 Occurren mikie starting 05/29/2025 documented as of this encounter Procedures Procedure Name Priority Date/Time Associated Diagnosis Comments PROPHYLAXIS - ADULT Routine 05/29/2025 8 :45 AM EDT Dental caries PERIODIC ORAL EVALUATION - ESTABLISHED PATIENT Routine 05/29/2025 8:45 AM EDT Dental caries ORAL HYGIENE INSTRUCTIONS Routine 2024 8:45 AM EDT Dental caries INTRAORAL - PERIAPICAL FIRST RADIOGRAPHIC IMAGE Routine 05/29/2025 8:45 AM EDT Dental caries INTRAORAL - PERIAPICAL EACH ADDITIONAL RADIOGRAPHIC IMAGE Routine 05/29/2025 8:45 AM EDT Dental caries CASE PRESENTATION, DETAILED AND EXTENSIVE TREATMENT PLANNING Routine 05/29/2025 8:45 AM EDT Dental caries BITEWINGS - 4 RADIOGRAPHIC IMAGES Routine 05/29/2025 8:45 AM EDT Dental caries documented in this encounter Visit Diagnoses Diagnosis Dental calculus- Primary Accretions on teeth Dental caries Unspecified dental caries documented in this encounter
--- NOTE | 2025-06-05 12:11 | A.OFFPC_ITS ---
Vital Signs 06/05/25 12:12 Height 5 ft 3 in Weight 104 lb BMI 18.4 BP 100/60 Blood Pressure Location Rt brachial Position Sitting Pulse 84 Pulse Source Pulse Oximeter Pulse Oximetry (%) 100 Oxygen Delivery Method Room Air Intake Visit Reasons: Pain and headache Urology Surgeon Required: No Accompanied by: Self / Same As Patient Allergies escitalopram (From Lexapro) Allergy (Severe, Verified 06/05/25 12:13) Hallucinations lamotrigine (Lamictal) Allergy (Unknown, Verified 06/05/25 12:13) Swelling of eyes/lips Medication List - Last Reconciled 06/05/25 by Valorie Leon MD cholecalciferol (vitamin D3) 25 mcg PO DAILY 90 days divalproex (Depakote) 250 mg PO BID Tobacco use date assessed: 06/05/25 Dental Screening Dental Screen Date: 06/05/25 Did you have a dental visit in the last 12 months?: Yes Did you have a dental problem in the last 6 months where you did not have access to dental care?: No Was dental information given to patient?: Patient has dentist HPI Pain and headache HPI Details History of Present Illness The patient is a 40-year-old female presenting for evaluation of recurrent headaches following a recent viral illness. Migraine: - The patient has a history of migraines and reports an increase in headache frequency since the beginning of the month, coinciding with a viral illness. - She describes the headaches as intermi ttent, throbbing, located on the right side, and associated with nausea. - The headaches are managed with Sumatri ptan, prescribed by her neurologist, which reportedly provides relief. - She identifies triggers for her migrai jeronimo, including exposure to cold, lack of sleep, dehydration, and emotional stress. - Her last visit with the neurologist wa s recent, and the next follow-up is scheduled for November. Viral Illness: - The patient was seen at a walk-in clin on May 18 for a viral illness. - Initial symptoms included significant muscle pain, particularly in the legs, which has since improved. - A viral swab was performed at the time , and the results were reported as normal. - The patient reports she is generally f eeling better from the illness. Anxiety: - The patient is not currently working d ue to emotional distress following a past traumatic event. - She reports experiencing anxiety with daily activities, such as driving, and feels hesitant to step out of her comfort zone. - The patient is not currently in therap y but states she is going to work on facing her fears. - She reports a previous adverse reactio n to Escitalopram and declined an offer for Lorazepam at this time. Seizure Disorder: - The patient has a history of seizures for which she takes Divalproex (Depakote). - She has been on this medication since approximately 2865-0527. Underweight: - The patient wants to gain weight and n otes her weight tends to fluctuate. - She reports a poor appetite, often fee ling full after eating only a small amount. - Her BMI is 18.4. - It was discussed that her appetite may be affected by her Divalproex medication or underlying anxiety. Medical History: - Migraine - Seizure disorder - Anxiety - History of a traumatic event - Recent viral illness - Adverse reaction to Escitalopram Problem List - Migraine - Seizure disorder - Anxiety - Recent viral illness Plan - Migraines: Continue taking Sumatriptan as needed at the first sign of a headache. - If headaches become more frequent, suc h as once or twice a week, a preventative medication will be considered. - Will continue follow-up with her neuro logist, with the next appointment scheduled in six months (November). - Viral Illness/Myalgia: Reassurance pro vided that the lingering muscle pains from the recent viral illness will resolve over time. - Anxiety: Therapy was recommended to ad dress underlying anxiety and trauma. - The patient declined a new medication (Lorazepam) for anxiety at this time but was advised she can follow up if she changes her mind. - The patient will work on gradually richard ensitizing herself to fearful situations. - Follow-up: No acute follow-up appointm ent was scheduled. The patient was advised to schedule her yearly physical exam when due. Review of Systems - General: No fever no chills - Neurological: no dizziness - Ear nose throat: No sore throat no hearing difficulty no ear pain - Cardiovascular: No syncope, no chest pain, no palpitations - Gastrointestinal: No nausea vomiting or diarrhea - Endocrine: No polyuria polydipsia no heat intolerance - Genitourinary: No dysuria , no blood in urine Physical Exam - General: No acute distress - HEENT: No acute findings - Neck: Supple - Respiratory system: Able to talk in f ull sentences, no audible wheeze - Cardiovascular: S1-S2 regular in rate and rhythm - Gastrointestinal: No pain - Extremities: No new findings - RESIDENTIAL INSURANCE INSPECTOR: Alert awake oriented x3 motor in tact - Skin: Normal turgor PFSH Medical History Anxiety, generalized Epilepsy Brain tumor Seizures Surgical History History of section [place] teeth extracted Brain tumor Family History Father Diabetes mellitus Mother Medical history non-contributory Sister Asthma Sister No problems noted. Son No problems noted. Social History Household Members: Family and Children Household Members Other:: Pt lives with 11 yo son, grandmother, and uncle. Mother lives downstairs Housing: House Alcohol intake: never Patient Tobacco Use Status: Never used Tobacco e-Cigarette/Vaping Use: Never Used service: No Current occupational status: unemployed Cognitive needs: No Hearing needs: No Vision needs: No Questionnaire PHQ-9 Over the last 2 weeks, how often have you been bothered by any of the following problems? 1. Little interest or pleasure in doing things: not at all 2. Feeling down, depressed, or hopeless: not at all 3. Trouble falling or staying asleep, or sleeping too much: not at all 4. Feeling tired or having little energy: not at all 5. Poor appetite or overeating: not at all 6. Feeling bad about yourself - or that you are a failure or have let yourself or your family down: not at all 7. Trouble concentrating on things, such as reading the newspaper or watching television: not at all 8. Moving or speaking so slowly that other people could have noticed. Or the opposite - being so fidgety or restless that you have been moving around a lot more than usual: not at all 9. Thoughts that you would be better off or of hurting yourself in some way: not at all Total score: 0 Depression Screening Interpretation: Negative Depression Screening Done: Yes 95555 - PHQ-9 Billing: Yes Source: Developed by Drs. Rubens Jhaveri, Liane Shannon, Estrada Macias and colleagues, with an educational anjel from [employer]. Thrive Questionnaire Date Thrive assessed: 05/26/24 I am a: Patient What is your living situation today?: I have a steady place to live Within the past 12 months, did the food you bought not last and you didn't have the money to get more?: I choose not to answer this question Within the past 12 months, did you worry whether your food would run out before you got money to buy more?: I choose not to answer this question Do you have trouble paying for medicines?: I choose not to answer this question Do you have trouble getting transportation to medical appointments?: I choose not to answer this question Do you have trouble paying your heating and electricity bill?: I choose not to answer this question Do you have trouble taking care of your child, family member or friend?: I choose not to answer this question Do you have trouble with day-to-day activities such as bathing, preparing meals, shopping, managing finances, etc.?: I choose not to answer this question Are you currently unemployed and looking for a job?: I choose not to answer this question Are you interested in more education?: I choose not to answer this question Please select the resources that you would like help with: None Currently or been in a relationship where the following occur: I choose not to answer THRIVE Score: 0 AUDIT C Alcohol Use Questionnaire (AUDIT-C) 1. How often do you have a drink containing alcohol?: Never Total Score: 0 YOSHI-7 AMB Questionnaire YOSHI-7 Date YOSHI - 7 assessed: 08/20/23 Feeling nervous, anxious, or on edge: 0 = Not at all Not being able to stop or control worryin = Not at all Worrying too much about different things: 0 = Not at all Trouble relaxin = Not at all Being so restless that it is hard to sit still: 0 = Not at all Becoming easily annoyed or irritable: 0 = Not at all Feeling afraid as if something awful might happen: 0 = Not at all Total YOSHI-7 score (0-4 normal; 5-9 mild; 10-14 moderate; 15-21 severe): 0 Source: Developed by Liane MontesW. Shiva, Estrada Macias and colleagues, with an educational anjel from [employer] YOSHI-7 Assessment Billing YOSHI-7 Assessment Tool: YOSHI-7 Assessment 37580 Physical exam (Primary Care) Vital Signs: Last Vital Signs Pulse 84 06/05/25 12:12 BP 100/60 06/05/25 12:12 Pulse Ox 100 06/05/25 12:12 Oxygen Delivery Method Room Air 06/05/25 12:12 BMI result Body Mass Index 18.4 Tobacco/Smoking Status: Tobacco use Status Tobacco use date assessed 06/05/25 06/05/25 12:18 Patient Tobacco Use Status Never used Tobacco 06/05/25 12:18 e-Cigarette/Vaping Use Never Used 06/05/25 12:18 PHQ-9: PHQ-9 Score PHQ-9: Total score 0 06/05/25 14:08 Depression Screening Interpretation: Negative Thrive Assessment: Date of Thrive Assessment Date Thrive assessed 05/26/24 06/05/25 12:18 Currently or been in a relationship where the following occur: I choose not to answer Coding Level of Care Code Est Pt Level 4 (09820) Diagnoses Migraine without aura and without status migrainosus, not intractable G43.009 Migraine type: migraine (< 15 days per month) without aura Status migrainosus presence: without status migrainosus Intractability: not intractable Recurrent major depressive disorder, in partial remission F33.41 Active/Remission status: in partial remission Underweight R63.6 PTSD (post-traumatic stress disorder) F43.10 Social anxiety disorder F40.10 Additional Codes YOSHI-7 Assessment Billing - YOSHI-7 Assessment Tool: YOSHI-7 Assessment 37168 ([id number]) PHQ-9 - 53800 - PHQ-9 Billing: Yes ([id number]) Assessment & Plan Assessment & Plan (1) Migraine: Code(s): G43.909 - Migraine, unspecified, not intractable, without status migrainosus Category: Medical Qualifiers: Migraine type: migraine (< 15 days per month) without aura Status migrainosus presence: without status migrainosus Intractability: not intractable Qualified Code(s): G43.009 - Migraine without aura, not intractable, without status migrainosus (2) Major depression, recurrent: Code(s): F33.9 - Major depressive disorder, recurrent, unspecified Category: Medical Qualifiers: Active/Remission status: in partial remission Qualified Code(s): F33.41 - Major depressive disorder, recurrent, in partial remission (3) Underweight: Code(s): R63.6 - Underweight Category: Medical (4) PTSD (post-traumatic stress disorder): Code(s): F43.10 - Post-traumatic stress disorder, unspecified Category: Medical (5) Social anxiety disorder: Code(s): F40.10 - Social phobia, unspecified Category: Medical Plan Migraine: - The patient has a history of migraines and reports an increase in headache frequency since the beginning of the month, coinciding with a viral illness. - She describes the headaches as intermittent, throbbing, located on the right side, and associated with nausea. - The headaches are managed with Sumatriptan, prescribed by her neurologist, which reportedly provides relief. - She identifies triggers for her migraines, including exposure to cold, lack of sleep, dehydration, and emotional stress. - Her last visit with the neurologist was recent, and the next follow-up is scheduled for November. Viral Illness: - The patient was seen at a walk-in clinic on May 18 for a viral illness. - Initial symptoms included significant muscle pain, particularly in the legs, which has since improved. - A viral swab was performed at the time, and the results were reported as normal. - The patient reports she is generally feeling better from the illness. Anxiety: - The patient is not currently working due to emotional distress following a past traumatic event. - She reports experiencing anxiety with daily activities, such as driving, and feels hesitant to step out of her comfort zone. - The patient is not currently in therapy but states she is going to work on facing her fears. - She reports a previous adverse reaction to Escitalopram and declined an offer for Lorazepam at this time. Seizure Disorder: - The patient has a history of seizures for which she takes Divalproex (Depakote). - She has been on this medication since approximately 3969-0306. Underweight: - The patient wants to gain weight and notes her weight tends to fluctuate. - She reports a poor appetite, often feeling full after eating only a small amount. - Her BMI is 18.4. - It was discussed that her appetite may be affected by her Divalproex medication or underlying anxiety. Medical History: - Migraine - Seizure disorder - Anxiety - History of a traumatic event - Recent viral illness - Adverse reaction to Escitalopram Problem List - Migraine - Seizure disorder - Anxiety - Recent viral illness Plan - Migraines: Continue taking Sumatriptan as needed at the first sign of a headache. - If headaches become more frequent, such as once or twice a week, a preventative medication will be considered. - Will continue follow-up with her neurologist, with the next appointment scheduled in six months (November). - Viral Illness/Myalgia: Reassurance provided that the lingering muscle pains from the recent viral illness will resolve over time. - Anxiety: Therapy was recommended to address underlying anxiety and trauma. - The patient declined a new medication (Lorazepam) for anxiety at this time but was advised she can follow up if she changes her mind. - The patient will work on gradually desensitizing herself to fearful situations. - Follow-up: No acute follow-up appointment was scheduled. The patient was advised to schedule her yearly physical exam when due.
[2025-06-05 12:12] VITALS: BP 100/60; PULSE 84; O2SAT 100; BMI 18.4
--- OUTSIDE RECORDS SUMMARY | 2025-06-05 15:29 | XMS_ITS | Clinical Summary ---
Author Organization [facility] it Address [address] [place] [address] Care Team Providers Care Newspaper Journalist Name Role Phone Unavailable Primary Care Provider [...]
--- OUTSIDE RECORDS SUMMARY | 2025-06-05 15:29 | XMS_ITS | Encounter Summary ---
Author Organization [facility] Address [address] [place] [address] Care Team Providers Care Court Administrator Name Role Phone Unavailable Primary Care Provider Unavailabl e Reason for Visit * Reason Onset Date Comments rs appt 07/19/2024 Encounter Details Date Type Department Care Team (Late st Contact Info) Description 07/19/2024 Telephone [facility] [address] [place] [address] Adria Allison DMD [address] [place] [address] rs appt Social History Tobacco Use Types [...] Description 11/28/2025 9:30 AM EDT Office Visit [facility] [address] [place] [address] Andrew Laureano documented as of this encounter Visit Diagnoses Not on filedocumented in this encounter
--- OUTSIDE RECORDS SUMMARY | 2025-06-05 15:29 | XMS_ITS | Encounter Summary ---
Author Organization [employer] Address [address] [place] [address] Care Team Providers Care Solar Installation Foreman Name Role Phone Unavailable Primary Care Provider Unavailabl e Reason for Visit * Reason Onset Date Comments rs appt 12/15/2024 Encounter Details Date Type Department Care Team (Late st Contact Info) Description 12/15/2024 Telephone [facility] [address] [place], [place] [phone] Adria Allison DMD [address] [place] [address] rs appt Social History Tobacco Use Types [...] sudol is here. Please contact pt to vrt mechanic her a new appt date.cs documented in this encounter Plan of Treatment Upcoming Encounters Date Type Department Care Team (Late st Contact Info) Description 11/28/2025 9:30 AM EDT Office Visit [facility] ADULT [facility] [address] [place] [address] Andrew Laureano documented as of this encounter Visit Diagnoses Not on filedocumented in this encounter
--- OUTSIDE RECORDS SUMMARY | 2025-06-05 15:30 | XMS_ITS | Clinical Summary ---
Author Organization [employer] Address [address] [place] [address] Care Team Providers Care Fund Director Name Role Phone Unavailable Primary Care [...] um Nitrate 1.1-5 % pasteIndications :Dental caries [place] teeth for 2 minutes, morning and night. Spit, do not rinse. Do not eat or drink anything for 30 minutes following brushing. 112 g 3 4 Active Sodium Fluoride 1.1 % creamIndications :Dental caries [place] teeth for 2 minutes, morning and night. [...] Diagnosed Date Labial lesion 05/29/2024 Underweight 05/29/2024 Encounters Date Type Department Care Team Description 05/29/2025 8:45 AM EDT Office Visit [facility]ULT [facility] [address] [place] [address] Andrew Laureano Dental calculus (Primary Dx); Dental caries from Last 3 Months Social History Tobacco Use Types Packs/Day Years [...] Upcoming Encounters Date Type Department Care Team ([facility] st Contact Info) Description 11/28/2025 9:30 AM EDT Office Visit [facility]ULT [facility] [address] [place] [id number] Andrew Laureano Health Maintenance Due Date Last Done Comments Depression Screening 1986 HIV Screening 1986 SDOH Screening 1986 Disability Screening 1986 Alcohol/Substance Use Screening 1998 Family Planning (PISQ) 2001 Hepatitis C Screening 02/16/2004 Hepatitis B Vaccines (1 of 3 - 19+ 3-dose series) 2005 Pap Smear 2007 Cervical Cancer Screening 02/16/2016 HPV/Cotest 02/16/2016 COVID-19 Vaccine ( season) 2025 Influenza Vaccine (#1) 2025 Dental Oral Exam 11/28/2025 05/29/2025, 04/07/2024 Dental Prophylaxis 11/28/2025 05/29/2025, 04/07/2024 Tobacco Screening 05/29/2026 05/29/2025 Dental X-Ray: Bitewings 05/30/2026 05/29/2025, 04/07 Dental X-Ray: Full Mouth 12/22/2027 12/20/2024, 03/11 DTaP/Tdap/Td Vaccines (2 - Td or Tdap) 07/12/2028 07/12/2018 Zoster Vaccines (1 of 2) 02/16/2036 RSV Patients and Patients Aged 60 years or older (1 - 1-dose 75+ series) 2061 HPV Vaccines Completed 02/20/2025, 02/06, 10/13/2024, Additional history exists HIB Vaccines Aged [...] Procedure Name Priority Date/Time Associated Diagnosis Comments PERIODIC ORAL EVALUATION - ESTABLISHED PATIENT Routine 05/29/2025 8:45 AM EDT Dental caries INTRAORAL - PERIAPICAL FIRST RADIOGRAPHIC IMAGE Routine 05/29/2025 8:45 AM EDT Dental caries BITEWINGS - 4 RADIOGRAPHIC IMAGES Routine 05/29/2025 8:45 AM EDT Dental caries CASE PRESENTATION, DETAILED AND EXTENSIVE TREATMENT PLANNING Routine 05/29/2025 8:45 AM EDT Dental caries ORAL HYGIENE INSTRUCTIONS Routine 05/29/2025 8:45 AM EDT Dental caries PROPHYLAXIS - ADULT Routine 05/29/2025 8 :45 AM EDT Dental caries INTRAORAL - PERIAPICAL EACH ADDITIONAL RADIOGRAPHIC IMAGE Routine 05/29/2025 8:45 AM EDT Dental caries PANORAMIC RADIOGRAPHIC IMAGE Routine 12/20/2024 2:00 PM EDT Periodontal disease Dental caries from Last 3 Months or Most Recently Relevant to Health Maintenance Insurance [place] AD[place]
== END 2025-06-05 12:36 | disposition home or self-care (01) ==
LOC: HO.HMCC 12:10
PROVIDERS: PCP Internal Medicine; Visit Provider Internal Medicine
DX: G43.009 Migraine without aura, not intractable, without status migrainosus (principal); F33.41 Major depressive disorder, recurrent, in partial remission; R63.6 Underweight; F43.10 Post-traumatic stress disorder, unspecified; F40.10 Social phobia, unspecified

== ENCOUNTER → 2025-06-05 12:09 | Outpatient (BNVA) | payer OTHER, SELFPAY | PROVIDERS: PCP Internal Medicine; Visit Provider Internal Medicine | DX: F33.41 Major depressive disorder, recurrent, in partial remission (principal); G43.909 Migraine, unspecified, not intractable, without status migrainosus; F41.9 Anxiety disorder, unspecified; G40.909 Epilepsy, unspecified, not intractable, without status epilepticus; R63.6 Underweight; F43.10 Post-traumatic stress disorder, unspecified; F40.10 Social phobia, unspecified; Z68.1 Body mass index [BMI] 19.9 or less, adult | CPT/HCPCS: 96127; 99212 ==

== ENCOUNTER 2025-07-25 13:34 | Outpatient (AMB) | payer OTHER, SELFPAY ==
[2025-07-25 13:40] VITALS: BP 100/62; PULSE 63; O2SAT 97; BMI 18.8
--- NOTE | 2025-07-25 13:40 | MHC.PC.OV ---
Vital Signs 07/25/25 13:40 Height 5 ft 3 in Weight 106 lb BMI 18.8 BP 100/62 Blood Pressure Location Lt brachial Position Sitting Pulse 63 Pulse Source Pulse Oximeter Pulse Oximetry (%) 97 Intake Visit Reasons: Head aches Allergies escitalopram (From Lexapro) Allergy (Severe, Verified 07/25/25 13:40) Hallucinations lamotrigine (Lamictal) Allergy (Unknown, Verified 07/25/25 13:40) Swelling of eyes/lips Medication List - Last Reconciled 07/25/25 by Valorie Leon MD cholecalciferol (vitamin D3) 25 mcg PO DAILY 90 days divalproex (Depakote) 250 mg PO BID Tobacco use date assessed: 06/05/25 Dental Screening Dental Screen Date: 06/05/25 HPI HPI Comments History of Present Illness Details History of Present Illness The patient is a 40-year-old female presenting for evaluation of generalized body aches. Acute Viral Illness: - The patient reports the onset of symptoms last week, starting with pain and stiffness in her left arm. - The symptoms progressed to generalized body aches involving both arms and legs starting this week. - Associated symptoms include intermittent headaches, fatigue, a slightly sore throat, occasional nausea, and decreased appetite. - She also notes tingling sensations in her legs, which she finds frightening. - Yesterday, she experienced an unusual and intense thirst, drinking a whole bottle of water at 3 a.m. and feeling thirsty throughout the day with dry lips. - She reports a history of a similar viral illness in May. Seizure Disorder: - The patient is under the care of a neurologist and takes Depakote (valproic acid). - The medication level has not been checked recently. - She reports that the tingling sensation and hand shaking remind her of what she feels before a seizure, causing her fear. [facility] Medical History Anxiety, generalized Epilepsy Brain tumor Seizures Surgical History History of section [place] teeth extracted Brain tumor Family History Father Diabetes mellitus Mother Medical history non-contributory Sister Asthma Sister No problems noted. Son No problems noted. Social History Household Members: Family and Children Household Members Other:: Pt lives with 11 yo son, grandmother, and uncle. Mother lives downstairs Housing: House Alcohol intake: never Patient Tobacco Use Status: Never used Tobacco e-Cigarette/Vaping Use: Never Used service: No Current occupational status: unemployed Cognitive needs: No Hearing needs: No Vision needs: No Questionnaire Thrive Questionnaire Date Thrive assessed: 06/05/25 I am a: Patient What is your living situation today?: I have a steady place to live Within the past 12 months, did the food you bought not last and you didn't have the money to get more?: I choose not to answer this question Within the past 12 months, did you worry whether your food would run out before you got money to buy more?: I choose not to answer this question Do you have trouble paying for medicines?: I choose not to answer this question Do you have trouble getting transportation to medical appointments?: I choose not to answer this question Do you have trouble paying your heating and electricity bill?: I choose not to answer this question Do you have trouble taking care of your child, family member or friend?: I choose not to answer this question Do you have trouble with day-to-day activities such as bathing, preparing meals, shopping, managing finances, etc.?: I choose not to answer this question Are you currently unemployed and looking for a job?: I choose not to answer this question Are you interested in more education?: I choose not to answer this question Please select the resources that you would like help with: None Currently or been in a relationship where the following occur: I choose not to answer THRIVE Score: 0 YOSHI-7 AMB Questionnaire YOSHI-7 Date YOSHI - 7 assessed: 08/20/23 Source: Developed by Drs. Rubens Jhaveri, Liane Shannon, Estrada Macias and colleagues, with an educational anjel from [employer]. Review of Systems Narrative Review of Systems - General: No fever no chills - Neurological: No headaches no dizziness - Ear nose throat: No sore throat no hearing difficulty no ear pain - Cardiovascular: No syncope, no chest pain, no palpitations - Gastrointestinal: No nausea vomiting or diarrhea - Endocrine: No polyuria polydipsia no heat intolerance - Genitourinary: No dysuria , no blood in urine Physical exam (Primary Care) Vital Signs: Last Vital Signs Pulse 63 07/25/25 13:40 BP 100/62 07/25/25 13:40 Pulse Ox 97 07/25/25 13:40 BMI result Body Mass Index 18.8 Tobacco/Smoking Status: Tobacco use Status Tobacco use date assessed 06/05/25 07/25/25 13:42 Patient Tobacco Use Status Never used Tobacco 07/25/25 13:42 e-Cigarette/Vaping Use Never Used 07/25/25 13:42 Thrive Assessment: Date of Thrive Assessment Date Thrive assessed 06/05/25 07/25/25 13:42 Currently or been in a relationship where the following occur: I choose not to answer Narrative Physical Exam General: No acute distress HEENT: Mouth and ears with mild discomfort Neck: Stiffness noted Respiratory system: Able to talk in full sentences, no audible wheeze Cardiovascular: S1-S2 regular in rate and rhythm Gastrointestinal: No pain, appetite decreased Extremities: Tingling sensation in legs, muscle soreness, left arm pain LITIGATION ATTORNEY ASSOCIATE: Alert awake oriented x3 motor intact, no tremors Skin: Normal turgor Coding Level of Care Code Est Pt Level 4 (18695) Diagnoses Whole body pain R52 Muscle soreness M79.10 Throat irritation J39.2 Seizure disorder G40.909 Acute viral syndrome B34.9 Assessment & Plan Assessment & Plan (1) Whole body pain: Code(s): R52 - Pain, unspecified Category: Medical (2) Muscle soreness: Code(s): M79.10 - Myalgia, unspecified site Category: Medical (3) Throat irritation: Code(s): J39.2 - Other diseases of pharynx Category: Medical (4) Seizure disorder: Code(s): G40.909 - Epilepsy, unspecified, not intractable, without status epilepticus Category: Medical (5) Acute viral syndrome: Code(s): B34.9 - Viral infection, unspecified Category: Medical Plan Problem List - Acute viral illness - Myalgia - Paresthesia of legs - Seizure disorder Plan - Obtain blood tests today to investigate a possible viral illness, including basic labs and a valproic acid level check. - Prescribed naproxen for pain management, to be taken twice daily with food. - Advised the patient to avoid taking Advil and use the prescribed naproxen instead. - Reassured the patient that her symptoms are consistent with a viral illness, which is expected to resolve as her body develops immunity. - A follow-up phone call is scheduled for tomorrow at 9:30 AM to review the lab results. - The patient was instructed to orange picker her medication from the pharmacy today and begin taking it. Orders: Orders Valproate Today B34.9 - Viral infection, unspecified, G40.909 - Epilepsy, unspecified, not intractable, without status epilepticus, J39.2 - Other diseases of pharynx, M79.10 - Myalgia, unspecified site, R52 - Pain, unspecified Comprehensive Met. Panel Today B34.9 - Viral infection, unspecified, G40.909 - Epilepsy, unspecified, not intractable, without status epilepticus, J39.2 - Other diseases of pharynx, M79.10 - Myalgia, unspecified site, R52 - Pain, unspecified Erythrocyte Sedimentation Rate Today B34.9 - Viral infection, unspecified, G40.909 - Epilepsy, unspecified, not intractable, without status epilepticus, J39.2 - Other diseases of pharynx, M79.10 - Myalgia, unspecified site, R52 - Pain, unspecified Complete Blood Count Auto Diff Today B34.9 - Viral infection, unspecified, G40.909 - Epilepsy, unspecified, not intractable, without status epilepticus, J39.2 - Other diseases of pharynx, M79.10 - Myalgia, unspecified site, R52 - Pain, unspecified CRP High Sensitivity Today B34.9 - Viral infection, unspecified, G40.909 - Epilepsy, unspecified, not intractable, without status epilepticus, J39.2 - Other diseases of pharynx, M79.10 - Myalgia, unspecified site, R52 - Pain, unspecified Creatine Kinase Total Today B34.9 - Viral infection, unspecified, G40.909 - Epilepsy, unspecified, not intractable, without status epilepticus, J39.2 - Other diseases of pharynx, M79.10 - Myalgia, unspecified site, R52 - Pain, unspecified Lactic Acid Today B34.9 - Viral infection, unspecified, G40.909 - Epilepsy, unspecified, not intractable, without status epilepticus, J39.2 - Other diseases of pharynx, M79.10 - Myalgia, unspecified site, R52 - Pain, unspecified Medications: New naproxen 500 mg PO BID PRN 30 tabs 0RF pain 15 days
--- OUTSIDE RECORDS SUMMARY | 2025-07-25 18:08 | XMS_ITS | Clinical Summary ---
Author Organization [employer] Address [address] [facility] 7[address] [place] [address] Care Team Providers Care Plant Protection Superintendent Name Role Phone Unavailable Primary Care Provider [...] um Nitrate 1.1-5 % pasteIndications :Dental caries [place] teeth for 2 minutes, morning and night. Spit, do not rinse. Do not eat or drink anything for 30 minutes following brushing. 112 g 3 4 Active Sodium Fluoride 1.1 % creamIndications :Dental caries [place] teeth for 2 minutes, morning and night. [...] Description 05/29/2025 8:45 AM EDT Office Visit [facility]ULT [facility] [address] [place] [address] Andrew Laureano Dental calculus (Primary Dx); Dental [...] Upcoming Encounters Date Type Department Care Team ([facility] st Contact Info) Description 11/28/2025 9:30 AM EDT Office Visit [facility] [address] [place] [id number] Andrew Laureano Health Maintenance Due Date Last [...]
--- OUTSIDE RECORDS SUMMARY | 2025-07-25 18:08 | XMS_ITS | Clinical Summary ---
Author Organization [facility] it Address [address] [place] [address] Care Team Providers Care Building Mechanic Name Role Phone Unavailable Primary Care [...] Depression Screening 08/09/2024 COVID-19 Vaccine (1 - 2024-2 6 season) 2025 Influenza Vaccine (#1) 2025 RSV [...]
--- OUTSIDE RECORDS SUMMARY | 2025-07-25 18:08 | XMS_ITS | Encounter Summary ---
Author Organization [facility] Address [address] [facility] [address] [place] [address] Care Team Providers Care Entry Level Marketing Assistant Name Role Phone Unavailable Primary Care Provider Unavailabl e Reason for Visit * Reason Onset Date Comments rs appt 07/19/2024 Encounter Details Date Type Department Care Team (Late st Contact Info) Description 07/19/2024 Telephone [facility] [address] [place] [address] Adria Allison DMD [address] [place] [address] rs appt Social History Tobacco Use Types [...] Description 11/28/2025 9:30 AM EDT Office Visit [facility] [address] [place] [address] Andrew Laureano documented as of this encounter Visit Diagnoses Not on filedocumented in this encounter
--- OUTSIDE RECORDS SUMMARY | 2025-07-25 18:08 | XMS_ITS | Encounter Summary ---
Author Organization [employer] Address [address] [facility] 7[address] [place] [address] Care Team Providers Care Integration Project Manager Name Role Phone Unavailable Primary Care Provider Unavailabl e Reason for Visit * Reason Onset Date Comments rs appt 12/15/2024 Encounter Details Date Type Department Care Team (Late st Contact Info) Description 12/15/2024 Telephone [facility] ADULT D[facility] [address] [place], [place] [phone] Adria Allison DMD [address] [place] [address] rs appt Social History Tobacco Use Types [...] sudol is here. Please contact pt to cancer program consultant her a new appt date.cs documented in this encounter Plan of Treatment Upcoming Encounters Date Type Department Care Team (Late st Contact Info) Description 11/28/2025 9:30 AM EDT Office Visit [facility] ADULT D[facility] [address] [place] [address] Andrew Laureano documented as of this encounter Visit Diagnoses Not on filedocumented in this encounter
== END 2025-07-25 15:55 | disposition home or self-care (01) ==
LOC: HO.HMCC 13:34
PROVIDERS: PCP Internal Medicine; Visit Provider Internal Medicine
DX: R52 Pain, unspecified (principal); M79.10 Myalgia, unspecified site; J39.2 Other diseases of pharynx; G40.909 Epilepsy, unspecified, not intractable, without status epilepticus; B34.9 Viral infection, unspecified

== ENCOUNTER 2025-07-25 13:34 | Outpatient (REF) | payer OTHER, SELFPAY ==
[2025-07-25 15:45] LABS: MANUAL DIFF FLAG NO
[2025-07-25 15:57] LABS: Hematocrit 40.9 % (37.0-47.0); Hemoglobin 13.7 g/dl (12.0-16.0); Imm Gran Abs Auto 0.10 X10*3/uL (0.00-0.03); Imm Gran Pct Auto 0.8 % (0.0-0.4); Lymphocytes Absolute Auto 3.0 X10*3/uL (1.2-4.9); Mean Corpuscular HGB Conc 33.5 g/dl (31.0-35.0); Mean Corpuscular Hemoglobin 31.7 pg (27.0-33.0); Mean Corpuscular Volume 94.7 fL (80.0-98.0); NRBC Abs Auto 0.000 X10*3/uL (0.0-0.012); NRBC Pct Auto 0.0 /100WBC (0.0-0.2); Platelet Count 238 X10*3/uL (160-400); Red Blood Count 4.32 X10*6/uL (4.20-5.50); White Blood Count 12.5 X10*3/uL (4.8-10.8)
[2025-07-25 16:41] LABS: Alanine Aminotransferase 23 U/L (0-31); Albumin Level 4.9 g/dL (3.5-5.0); Alkaline Phosphatase 44 U/L (39-117); Anion Gap 13 (12-20); Aspartate Amino Transferase 19 U/L (5-31); Blood Urea Nitrogen 14 mg/dL (9-16); Calcium 10.0 mg/dL (8.4-10.2); Carbon Dioxide 29 mmol/L (22-29); Chloride 102 mmol/L (96-108); Estimated Glomerular Filt Rate > 60; Potassium 4.5 mmol/L (3.3-5.1); Sodium 139 mmol/L (135-145); Total Protein 7.9 g/dL (6.5-8.0)
== END 2025-07-25 13:35 | disposition home or self-care (01) ==
LOC: HO.HMGCLDS 13:34
PROVIDERS: PCP Internal Medicine; Visit Provider Internal Medicine
DX: J39.2 Other diseases of pharynx (principal); G40.909 Epilepsy, unspecified, not intractable, without status epilepticus; R52 Pain, unspecified; M79.10 Myalgia, unspecified site; B34.9 Viral infection, unspecified
CPT/HCPCS: 36415; 80053; 80164; 82550; 83605; 85025; 85652; 86141; 99212

== ENCOUNTER 2025-07-26 08:11 | Outpatient (AMB) | payer OTHER, SELFPAY ==
--- OUTSIDE RECORDS SUMMARY | 2025-07-26 08:28 | XMS_ITS | Clinical Summary ---
Author Organization [employer] Address [address] [facility] [address] [place] [address] Care Team Providers Care Mail Order Sorter Name Role Phone Unavailable Primary Care Provider [...] um Nitrate 1.1-5 % pasteIndications :Dental caries [place] teeth for 2 minutes, morning and night. Spit, do not rinse. Do not eat or drink anything for 30 minutes following brushing. 112 g 3 4 Active Sodium Fluoride 1.1 % creamIndications :Dental caries [place] teeth for 2 minutes, morning and night. [...] 8:45 AM EDT Office Visit [facility] ADULT [facility] [address] [place] [address] Andrew Laureano Dental calculus (Primary Dx); Dental [...] Upcoming Encounters Date Type Department Care Team ([facility] st Contact Info) Description 11/28/2025 9:30 AM EDT Office Visit [facility] [address] [place] [phone] Andrew Laureano Health Maintenance Due Date Last [...]
--- OUTSIDE RECORDS SUMMARY | 2025-07-26 08:28 | XMS_ITS | Encounter Summary ---
Author Organization [employer] [facility] Address [address] [facility] [address] [place] [address] Care Team Providers Care Surface Water Technician Name Role Phone Unavailable Primary Care Provider Unavailabl e Reason for Visit * Reason Onset Date Comments rs appt 07/19/2024 Encounter Details Date Type Department Care Team (Late st Contact Info) Description 07/19/2024 Telephone [facility] ADULT DENTAL [address] [place] [address] Adria Allison DMD [address] [place] [address] rs appt Social History Tobacco Use Types [...] Description 11/28/2025 9:30 AM EDT Office Visit [facility] ADULT D[facility] [address] [place] [address] Andrew Laureano documented as of this encounter Visit Diagnoses Not on filedocumented in this encounter
--- OUTSIDE RECORDS SUMMARY | 2025-07-26 08:28 | XMS_ITS | Encounter Summary ---
Author Organization [employer] Address [address] [facility] 7[address] [place] [address] Care Team Providers Care Hoeing Row Boss Name Role Phone Unavailable Primary Care Provider Unavailabl e Reason for Visit * Reason Onset Date Comments rs appt 12/15/2024 Encounter Details Date Type Department Care Team (Late st Contact Info) Description 12/15/2024 Telephone [facility] ADULT D[facility] [address] [place], [place] [phone] Adria Allison DMD [address] [place] [address] rs appt Social History Tobacco Use Types [...] sudol is here. Please contact pt to manager monitoring her a new appt date.cs documented in this encounter Plan of Treatment Upcoming Encounters Date Type Department Care Team (Late st Contact Info) Description 11/28/2025 9:30 AM EDT Office Visit [facility] [address] [place] [address] Andrew Laureano documented as of this encounter Visit Diagnoses Not on filedocumented in this encounter
--- OUTSIDE RECORDS SUMMARY | 2025-07-26 08:28 | XMS_ITS | Clinical Summary ---
Author Organization [facility] it Address [address] [place] [address] Care Team Providers Care Family And Consumer Science Professor Name Role Phone Unavailable Primary Care Provider [...]
--- NOTE | 2025-07-26 09:36 | A.OFFPC_ITS ---
Intake Visit Reasons: telehealth Allergies escitalopram (From Lexapro) Allergy (Severe, Verified 07/25/25 13:40) Hallucinations lamotrigine (Lamictal) Allergy (Unknown, Verified 07/25/25 13:40) Swelling of eyes/lips Tobacco use date assessed: 06/05/25 Dental Screening Dental Screen Date: 06/05/25 HPI HPI Comments History of Present Illness Details History of Present Illness The patient is a 40 year old female presenting for follow-up of a recent illness and review of her blood test results. Viral Illness: - The patient's symptoms began one day p rior to the visit. she is feeling better taking Naproxen Leukocytosis: - Recent blood tests revealed a very hig h white blood cell count. Medications: - Naproxen was prescribed 500 mg bid prn for muscle soreness. Social History: - Advised to maintain adequate hydration with water, drink orange juice, and consume fresh, homemade chicken soup. - Recommended to get adequate rest. [facility] Medical History Anxiety, generalized Epilepsy Brain tumor Seizures Surgical History History of section [place] teeth extracted Brain tumor Family History Father Diabetes mellitus Mother Medical history non-contributory Sister Asthma Sister No problems noted. Son No problems noted. Social History Household Members: Family and Children Household Members Other:: Pt lives with 11 yo son, grandmother, and uncle. Mother lives downstairs Housing: House Alcohol intake: never Patient Tobacco Use Status: Never used Tobacco e-Cigarette/Vaping Use: Never Used service: No Current occupational status: unemployed Cognitive needs: No Hearing needs: No Vision needs: No Questionnaire Thrive Questionnaire Date Thrive assessed: 06/05/25 YOSHI-7 AMB Questionnaire YOSHI-7 Date YOSHI - 7 assessed: 08/20/23 Source: Developed by Drs. Rubens Jhaveri, Liane Shannon, Estrada Macias and colleagues, with an educational anjel from [employer]. Review of Systems Narrative Review of Systems - General: No fever no chills - Neurological: s no dizziness - Ear nose throat: No sore throat no hearing difficulty no ear pain - Cardiovascular: No syncope, no chest pain, no palpitations - Gastrointestinal: No nausea vomiting or diarrhea Physical exam (Primary Care) Tobacco/Smoking Status: Tobacco use Status Tobacco use date assessed 06/05/25 07/25/25 13:42 Patient Tobacco Use Status Never used Tobacco 07/25/25 13:42 e-Cigarette/Vaping Use Never Used 07/25/25 13:42 Thrive Assessment: Date of Thrive Assessment Date Thrive assessed 06/05/25 07/25/25 13:42 Narrative Telehealth Telehealth Telehealth Platform: [employer] Location of provider rendering services: practice address Location of patient: address on file Patient Identification confirmed using: Name, : Yes Telehealth method: video Patient verbally consented to treatment: Yes Patient verbally consented to billing insurance company: Yes Patient informed of any privacy concerns related to visit: Yes Minutes spent on Phone/Video with Pt.: 13 Coding Level of Care Code Tele Est Pt Level 3 (67201) Diagnoses Acute viral syndrome B34.9 Assessment & Plan Assessment & Plan (1) Acute viral syndrome: Code(s): B34.9 - Viral infection, unspecified Category: Medical Plan Problem List - Viral illness - Leukocytosis Plan - The patient was informed that her high white blood cell count is most likely secondary to her current viral illness. - Advised that the leukocytosis will resolve as she recovers from the virus and to wait it out. - She may continue her Naproxen as needed for one week, with the option to take it up to every 12 hours if required. - Recommended supportive care including rest and staying well-hydrated with water, orange juice, and fresh chicken soup to boost immunity. - The patient should follow up in one week to assess her condition and should get back in touch if she is not feeling better.
== END 2025-07-26 11:17 | disposition home or self-care (01) ==
LOC: HO.HMCC 08:11
PROVIDERS: PCP Internal Medicine; Visit Provider Internal Medicine
DX: B34.9 Viral infection, unspecified (principal)